=== PATIENT | male | born 1960 | race Caucasian/White ===

== ENCOUNTER 2016-11-01 13:31 | Emergency (ER) | payer MEDICAID ==
[~2016-11-01] VITALS: Ht 172.7 cm; Wt 110.0 kg
[~2016-11-01 13:31] MED LIST: AMLO5TAB4 PO; CALC300T5 PO; ERTA1VIA IV; FURO-92 PO; HYDR4TAB16 PO; LISI40TA PO; LORA2TAB99 PO; LUBI24CA5 PO; MORP60TA34 PO; Metronidazole PO; POLY17PO5 NG; POTA10TA PO; POTA20TA37 PO; RIVA20TA PO
[2016-11-01 13:33] VITALS: BP 165/98
[2016-11-01] MEDS ORDERED: SODIUM CHLORIDE 0.9% 1,000 ML IV ONE (13:58)
[2016-11-01] MEDS ORDERED: HYDROmorphone 1 MG/ML, 1ML IVPush PRN (14:00)
[2016-11-01] MEDS ORDERED: SODIUM CHLORIDE 0.9% 1,000ML IVBOLUS ONE (14:00)
[2016-11-01] MEDS ORDERED: ONDANSETRON 2MG/ML, 2ML IVPush ONE (14:00)
[2016-11-01] MEDS ORDERED: SODIUM CHLORIDE FLUSH 10ML SYR IVF ONE (14:00)
[2016-11-01 14:55] LABS: HEMOGLOBIN 14.5 g/dL (13.7-18.0)
[2016-11-01 15:06] LABS: BLOOD UREA NITROGEN 15 mg/dL (7-18)
[2016-11-01 15:10] LABS: ASPARTATE AMINO TRANSFERASE 61 U/L (15-37)
[2016-11-01] MEDS ORDERED: HYDROmorphone 1 MG/ML, 1ML ONE (16:28)
[2016-11-01] MEDS ORDERED: ONDANSETRON ODT 4 MG ONE (16:28)
[2016-11-01] MEDS ORDERED: ONDANSETRON ODT 4 MG PO ONE (16:30)
[2016-11-01] MEDS ORDERED: HYDROmorphone 1 MG/ML, 1ML IM ONE (16:30)
== END 2016-11-01 16:45 | disposition other institution (70) ==
LOC: ED 15:01
DX: R19.7 Diarrhea, unspecified (principal); R10.84 Generalized abdominal pain; E11.9 Type 2 diabetes mellitus without complications; G43.909 Migraine, unspecified, not intractable, without status migrainosus; I11.0 Hypertensive heart disease with heart failure; I50.40 Unspecified combined systolic (congestive) and diastolic (congestive) heart failure; N19 Unspecified kidney failure
CPT/HCPCS: 36415; 74020; 80053; 83690; 85025; 96372; 99285; J1170; Q0162

== ENCOUNTER 2016-11-07 12:52 | Emergency (ER) | payer MEDICAID ==
[~2016-11-07] VITALS: Ht 172.7 cm; Wt 110.9 kg
[2016-11-07 12:54] VITALS: BP 158/91
== END 2016-11-07 13:56 | disposition left against medical advice (07) ==
LOC: ED 13:50
DX: R07.89 Other chest pain (principal); F11.20 Opioid dependence, uncomplicated; I11.0 Hypertensive heart disease with heart failure; I50.9 Heart failure, unspecified; E11.9 Type 2 diabetes mellitus without complications; Z88.6 Allergy status to analgesic agent; Z88.8 Allergy status to other drugs, medicaments and biological substances
CPT/HCPCS: 93005; 99283

== ENCOUNTER 2016-12-06 15:25 | Inpatient (IN) | payer MEDICAID ==
[~2016-12-06] VITALS: Ht 172.7 cm; Wt 93.0 kg
[~2016-12-06 15:25] MED LIST changes: +CHOL500050 PO; +ERGO500017 PO; +METO-93 PO; +MULT-412 PO; +MULT-82 PO
[2016-12-06] MEDS ORDERED: MORP60TA34 PO (15:44)
[2016-12-06] MEDS ORDERED: LISI40TA PO (15:44)
[2016-12-06] MEDS ORDERED: DILT240C77 PO (15:44)
[2016-12-06] MEDS ORDERED: SODIUM CHLORIDE FLUSH 10ML SYR IVF ONE (16:30)
[2016-12-06] MEDS ORDERED: SODIUM CHLORIDE 0.9% 1,000ML IVBOLUS ONE (16:30)
[2016-12-06] MEDS ORDERED: ONDANSETRON 2MG/ML, 2ML IVPush ONE (16:30)
[2016-12-06 16:36] LABS: ASPARTATE AMINO TRANSFERASE 99 U/L (15-37); BLOOD UREA NITROGEN 20 mg/dL (7-18)
[2016-12-06] MEDS ORDERED: MORPHINE SULFATE 4 MG/ML, 1ML ONE ×2 (16:59→18:04)
[2016-12-06] MEDS ORDERED: ONDANSETRON 2MG/ML, 2ML ONE (16:59)
[2016-12-06] MEDS: MORPHINE SULFATE 4 MG/ML, 1ML IVPush PRN ×2 (17:03→18:07)
[2016-12-06] MEDS ORDERED: SODIUM CHLORIDE 0.9%, 500ML IVBOLUS ONE (17:30)
[2016-12-06] MEDS ORDERED: OMNIPAQUE 350 MG/ML, 100ML BOTTLE ONE ×2 (18:01→19:07)
[2016-12-06] MEDS ORDERED: BISACODYL 10 MG SUPP PR PRN (20:00)
[2016-12-06] MEDS ORDERED: ONDANSETRON 2MG/ML, 2ML IVP PRN (20:00)
[2016-12-06] MEDS ORDERED: HYDROmorphone 2MG TABLET PO PRN (20:00)
[2016-12-06] MEDS ORDERED: DOCUSATE 100 MG CAPSULE PO PRN (20:00)
[2016-12-06] MEDS ORDERED: POLYETHYLENE GLYCOL 17 GM PACKET PO PRN (20:00)
[2016-12-06] MEDS ORDERED: LABETALOL 5MG/ML, 20ML IV PRN (20:00)
[2016-12-06] MEDS ORDERED: ERGOCALCIFEROL 50,000 UNIT CAPSULE PO SCH (20:00)
[2016-12-06 20:13] VITALS: BP 140/95
[2016-12-06 20:34] LABS: DAU SCREEN DISCLAIMER
[2016-12-06] MEDS: morphine SULFATE 60 MG TABLET.ER PO SCH (21:00)
[2016-12-06] MEDS: NS + 20MEQ KCL 1,000 ML IV SCH (22:21)
[2016-12-06] MEDS: HEPARIN 5,000 UNITS/ML, 1ML SQ SCH (22:21)
[2016-12-06 22:24] VITALS: BP 111/66
[2016-12-06] MEDS: TRAZODONE 50MG TABLET PO PRN (23:59)
[2016-12-07 00:30] LABS: IS PT STATUS REG ER OR PRE ER? NO
[2016-12-07 01:54] VITALS: BP 97/62
[2016-12-07] MEDS: NS + 20MEQ KCL 1,000 ML IV SCH ×2 (04:20→09:13)
[2016-12-07] MEDS: HEPARIN 5,000 UNITS/ML, 1ML SQ SCH ×3 (05:32→22:15)
[2016-12-07 06:09] LABS: ASPARTATE AMINO TRANSFERASE 85 U/L (15-37); BLOOD UREA NITROGEN 23 mg/dL (7-18)
[2016-12-07 06:28] LABS: DIFF TOTAL CELLS COUNTED 100 CELL DIFF
[2016-12-07 06:30] LABS: VERIFY COUNTS? YES
[2016-12-07 06:31] LABS: ANISOCYTOSIS 1+; IS PT STATUS REG ER OR PRE ER? NO
[2016-12-07 08:02] VITALS: BP 129/81
[2016-12-07] MEDS: morphine SULFATE 60 MG TABLET.ER PO SCH ×2 (08:09→21:10)
[2016-12-07] MEDS: MULTIVITAMIN 1 TABLET PO SCH (08:09)
[2016-12-07] MEDS ORDERED: D5%-0.9% NACL 1,000 ML IV SCH ×2 (10:30)
[2016-12-07] MEDS ORDERED: MAGNESIUM SULFATE PMX 2GM/50ML 50 ML IV ONE (10:30)
[2016-12-07] MEDS ORDERED: CEFTRIAXONE PMX 1GM/50ML 50 ML IV SCH (11:00)
[2016-12-07] MEDS ORDERED: HYDROmorphone 2MG TABLET ONE (12:16)
[2016-12-07 13:34] VITALS: BP 122/63
[2016-12-07] MEDS: METOPROLOL SUCCINATE 50 MG TAB.ER.24H PO SCH (13:58)
[2016-12-07] MEDS: HYDROmorphone 2MG TABLET PO PRN ×2 (14:59→22:16)
[2016-12-07 20:00] VITALS: BP 138/89
[2016-12-07] MEDS: TRAZODONE 50MG TABLET PO PRN (23:12)
[2016-12-08 02:43] VITALS: BP 154/87
[2016-12-08] MEDS: HYDROmorphone 2MG TABLET PO PRN ×2 (04:08→10:27)
[2016-12-08 05:55] LABS: BLOOD UREA NITROGEN 18 mg/dL (7-18)
[2016-12-08] MEDS: METOPROLOL SUCCINATE 50 MG TAB.ER.24H PO SCH (06:46)
[2016-12-08 08:47] VITALS: BP 145/87
[2016-12-08] MEDS: morphine SULFATE 60 MG TABLET.ER PO SCH (08:49)
[2016-12-08] MEDS: MULTIVITAMIN 1 TABLET PO SCH (08:49)
[2016-12-08] MEDS: HEPARIN 5,000 UNITS/ML, 1ML SQ SCH (08:50)
[2016-12-08] MEDS ORDERED: AMLODIPINE 5 MG TABLET PO SCH (09:00)
[2016-12-08] MEDS ORDERED: HYDR2TAB40 PO (09:33)
[2016-12-08] MEDS ORDERED: AMLO5TAB2 PO (09:33)
[2016-12-08] MEDS ORDERED: METO-93 PO (09:33)
== END 2016-12-08 12:08 | disposition home or self-care (01) | DRG 439 ==
LOC: ED 18:07 → EDIP 18:08 → ED 18:18 → 5SO 20:09 → 4NOR 12-07 14:34
PROVIDERS: ADMIT Internal Medicine; ATTEND Internal Medicine
PROC: 0T9B70Z Drainage of Bladder with Drainage Device, Via Natural or Artificial Opening (ICD-10-PCS; principal; 2016-12-06)
DX: K85.90 Acute pancreatitis without necrosis or infection, unspecified (principal); F11.20 Opioid dependence, uncomplicated; K56.60 Unspecified intestinal obstruction; I42.1 Obstructive hypertrophic cardiomyopathy; I50.32 Chronic diastolic (congestive) heart failure; K56.7 Ileus, unspecified; N17.9 Acute kidney failure, unspecified; E78.5 Hyperlipidemia, unspecified; I73.9 Peripheral vascular disease, unspecified; F17.210 Nicotine dependence, cigarettes, uncomplicated; B19.20 Unspecified viral hepatitis C without hepatic coma; G89.29 Other chronic pain; I11.0 Hypertensive heart disease with heart failure; E55.9 Vitamin D deficiency, unspecified; E86.0 Dehydration; E87.6 Hypokalemia; E86.1 Hypovolemia; K76.0 Fatty (change of) liver, not elsewhere classified; Z86.711 Personal history of pulmonary embolism; Z86.718 Personal history of other venous thrombosis and embolism; Z86.14 Personal history of Methicillin resistant Staphylococcus aureus infection; Z88.8 Allergy status to other drugs, medicaments and biological substances; Z88.6 Allergy status to analgesic agent; Z90.49 Acquired absence of other specified parts of digestive tract; Z83.3 Family history of diabetes mellitus; Z86.19 Personal history of other infectious and parasitic diseases; Z71.6 Tobacco abuse counseling
CPT/HCPCS: 36415; 71010; 72192; 74175; 80048; 80053; 80307; 81001; 83690; 83735; 83880; 84439; 84443; 84484; 85025; 85610; 87040; 87324; 93005; 96361; 96374; 96375; J1644; J2405; J3480; Q9967; J3475; J7030; J7040

== ENCOUNTER 2017-01-23 | Inpatient (IN) | payer MEDICAID ==
[~2017-01-23] VITALS: Ht 172.7 cm; Wt 108.7 kg
[~2017-01-23] MED LIST changes: +AMLO5TAB2 PO; +DILT240C77 PO; +HYDR2TAB40 PO
[2017-01-23] MEDS ORDERED: SODIUM CHLORIDE 0.9% 1,000ML IVBOLUS ONE (01:30)
[2017-01-23] MEDS ORDERED: MORPHINE SULFATE 4 MG/ML, 1ML IVPush ONE (01:30)
[2017-01-23] MEDS ORDERED: ONDANSETRON 2MG/ML, 2ML IVPush ONE ×2 (01:30→05:00)
[2017-01-23 01:32] LABS: BLOOD UREA NITROGEN 19 mg/dL (7-18)
[2017-01-23 01:33] LABS: ASPARTATE AMINO TRANSFERASE 66 U/L (15-37)
[2017-01-23] MEDS ORDERED: ONDANSETRON 2MG/ML, 2ML ONE (01:55)
[2017-01-23] MEDS ORDERED: MORPHINE SULFATE 4 MG/ML, 1ML ONE (01:55)
[2017-01-23] MEDS ORDERED: POTASSIUM CHLORIDE 10 MEQ TABLET.ER PO SCH (04:30)
[2017-01-23] MEDS ORDERED: POTASSIUM CHLORIDE 20 MEQ in SODIUM CHLORIDE 0.9% 250 ML IV ONE (04:30)
[2017-01-23] MEDS ORDERED: POTASSIUM CHLORIDE 20 MEQ in D5%-0.45% NACL 1,000 ML IV ONE (04:54)
[2017-01-23] MEDS ORDERED: POTASSIUM CHLORIDE 20 MEQ TAB.ER.PRT PO ONE ×2 (05:00→07:00)
[2017-01-23] MEDS ORDERED: MORPHINE SULFATE 4 MG/ML, 1ML IVPush PRN (05:00)
[2017-01-23] MEDS ORDERED: SODIUM CHLORIDE FLUSH 10ML SYR IVF PRN (05:00)
[2017-01-23] MEDS ORDERED: POTASSIUM CHLORIDE 20 MEQ TAB.ER.PRT ONE (05:07)
[2017-01-23 05:41] VITALS: BP 149/90
[2017-01-23 07:20] VITALS: BP 162/85
[2017-01-23 07:23] VITALS: BP 155/87
[2017-01-23] MEDS ORDERED: ONDANSETRON ODT 4 MG PO PRN (08:30)
[2017-01-23] MEDS ORDERED: MAGNESIUM SULFATE PMX 2GM/50ML 50 ML IV ONE (08:30)
[2017-01-23] MEDS ORDERED: ONDANSETRON 2MG/ML, 2ML IVPush PRN (08:30)
[2017-01-23] MEDS ORDERED: LACTATED RINGERS 1,000 ML IV SCH (08:30)
[2017-01-23] MEDS: HYDROmorphone 2MG TABLET PO PRN ×5 (09:24→21:07)
[2017-01-23] MEDS: PANTOPROZOLE 40MG TABLET PO SCH (09:26)
[2017-01-23] MEDS: LISINOPRIL 20 MG TABLET PO SCH (09:27)
[2017-01-23] MEDS: DILTIAZEM 120 MG TABLET PO SCH (09:28)
[2017-01-23] MEDS: ONDANSETRON 2MG/ML, 2ML IVPush PRN ×2 (10:02→19:13)
[2017-01-23 10:48] LABS: DAU SCREEN DISCLAIMER
[2017-01-23] MEDS: NS + 20MEQ KCL 1,000 ML IV SCH ×2 (13:12→22:41)
[2017-01-23 14:48] VITALS: BP 128/74
[2017-01-23 19:57] VITALS: BP 142/79
[2017-01-23] MEDS ORDERED: ZOLPIDEM 5MG TABLET PO ONE (23:00)
[2017-01-24] MEDS: HYDROmorphone 2MG TABLET PO PRN ×3 (01:15→09:09)
[2017-01-24 02:44] VITALS: BP 139/80
[2017-01-24 06:38] LABS: BLOOD UREA NITROGEN 17 mg/dL (7-18)
[2017-01-24 08:01] VITALS: BP 162/94
[2017-01-24] MEDS: DILTIAZEM 120 MG TABLET PO SCH (09:09)
[2017-01-24] MEDS: PANTOPROZOLE 40MG TABLET PO SCH (09:09)
[2017-01-24] MEDS: NS + 20MEQ KCL 1,000 ML IV SCH (09:09)
[2017-01-24] MEDS: LISINOPRIL 20 MG TABLET PO SCH (09:10)
[2017-01-24] MEDS ORDERED: LORazepam 1MG TABLET PO PRN (11:00)
[2017-01-24] MEDS ORDERED: HYDR2TAB40 PO (14:19)
[2017-01-24] MEDS ORDERED: PANT40TA5 PO (14:45)
[2017-01-24 14:51] VITALS: BP 131/79
== END 2017-01-24 14:59 | disposition home or self-care (01) | DRG 439 ==
LOC: ED 00:48 → EDIP 04:38 → 4NOR 05:19
PROVIDERS: ADMIT Internal Medicine; ATTEND Internal Medicine
DX: K85.90 Acute pancreatitis without necrosis or infection, unspecified (principal); F11.20 Opioid dependence, uncomplicated; E87.2 Acidosis; K52.9 Noninfective gastroenteritis and colitis, unspecified; K86.1 Other chronic pancreatitis; B19.20 Unspecified viral hepatitis C without hepatic coma; E11.9 Type 2 diabetes mellitus without complications; I73.9 Peripheral vascular disease, unspecified; E87.6 Hypokalemia; E78.5 Hyperlipidemia, unspecified; E86.0 Dehydration; F17.210 Nicotine dependence, cigarettes, uncomplicated; G89.29 Other chronic pain; Z86.14 Personal history of Methicillin resistant Staphylococcus aureus infection; Z83.3 Family history of diabetes mellitus; Z80.9 Family history of malignant neoplasm, unspecified; I11.0 Hypertensive heart disease with heart failure; I50.9 Heart failure, unspecified; Z86.711 Personal history of pulmonary embolism; Z87.11 Personal history of peptic ulcer disease; R19.5 Other fecal abnormalities; Z90.49 Acquired absence of other specified parts of digestive tract; Z88.6 Allergy status to analgesic agent; Z88.8 Allergy status to other drugs, medicaments and biological substances
CPT/HCPCS: 36415; 74022; 80048; 80053; 80307; 81003; 83690; 83735; 84100; 85014; 85018; 85025; 87324; 93005; 96361; 96374; 96375; J2405; J3480; J3475; J7030

== ENCOUNTER 2017-01-29 10:44 | Emergency (ER) | payer MEDICAID ==
[~2017-01-29] VITALS: Ht 172.7 cm; Wt 107.0 kg
[~2017-01-29 10:44] MED LIST changes: +PANT40TA5 PO
[2017-01-29] MEDS ORDERED: BACITRACIN ZINC OINT 500U/GM, 0.9 GM ONE (11:17)
[2017-01-29] MEDS ORDERED: SODIUM CHLORIDE 0.9% 1,000 ML IV ONE (11:49)
[2017-01-29] MEDS ORDERED: FAMOTIDINE 20 MG/2 ML IVP ONE (12:00)
[2017-01-29] MEDS ORDERED: LORazepam 2 MG/ML, 1ML IVPush ONE (12:00)
[2017-01-29] MEDS ORDERED: ONDANSETRON 2MG/ML, 2ML IVPush ONE (12:00)
[2017-01-29] MEDS ORDERED: SODIUM CHLORIDE 0.9% 1,000ML IVBOLUS ONE (12:00)
[2017-01-29] MEDS ORDERED: MAALOX/HYOSCYAMINE/LIDOCAINE 45 ML BOTTLE PO ONE (12:00)
[2017-01-29] MEDS ORDERED: ONDANSETRON 2MG/ML, 2ML ONE (12:14)
[2017-01-29] MEDS ORDERED: FAMOTIDINE 20 MG/2 ML ONE (12:14)
[2017-01-29] MEDS ORDERED: MAALOX/HYOSCYAMINE/LIDOCAINE 45 ML BOTTLE ONE (12:14)
[2017-01-29] MEDS ORDERED: MORPHINE SULFATE 4 MG/ML, 1ML ONE ×2 (12:14→14:08)
[2017-01-29] MEDS ORDERED: LORazepam 2 MG/ML, 1ML ONE (12:15)
[2017-01-29] MEDS: MORPHINE SULFATE 4 MG/ML, 1ML IVPush PRN ×2 (12:58→14:11)
[2017-01-29 13:04] LABS: ASPARTATE AMINO TRANSFERASE 56 U/L (15-37); BLOOD UREA NITROGEN 14 mg/dL (7-18)
[2017-01-29 13:16] LABS: IS PT STATUS REG ER OR PRE ER? YES
[2017-01-29] MEDS ORDERED: OMNIPAQUE 350 MG/ML, 100ML BOTTLE ONE (13:51)
[2017-01-29] MEDS ORDERED: LORazepam 1MG TABLET ONE (14:29)
[2017-01-29] MEDS ORDERED: LORazepam 1MG TABLET PO ONE (14:30)
[2017-01-29 14:50] VITALS: BP 145/87
== END 2017-01-29 14:54 | disposition home or self-care (01) ==
LOC: ED 13:13
DX: K52.9 Noninfective gastroenteritis and colitis, unspecified (principal); E86.0 Dehydration; E78.5 Hyperlipidemia, unspecified; E11.40 Type 2 diabetes mellitus with diabetic neuropathy, unspecified; G43.909 Migraine, unspecified, not intractable, without status migrainosus; I50.9 Heart failure, unspecified; E11.22 Type 2 diabetes mellitus with diabetic chronic kidney disease; N18.9 Chronic kidney disease, unspecified; I12.9 Hypertensive chronic kidney disease with stage 1 through stage 4 chronic kidney disease, or unspecified chronic kidney disease; F41.9 Anxiety disorder, unspecified
CPT/HCPCS: 36415; 71010; 74177; 80053; 81003; 83605; 83690; 83880; 84484; 85025; 85610; 87040; 87324; 89055; 93005; 96361; 96374; 96375; 96376; 99285; J2060; J2405; J7030; Q9967; S0028

== ENCOUNTER 2017-02-06 09:53 | Emergency (ER) | payer MEDICAID ==
[~2017-02-06] VITALS: Ht 172.7 cm; Wt 107.0 kg
[~2017-02-06 09:53] MED LIST changes: -HYDR4TAB16 PO; +HYDR4TAB48 PO
[2017-02-06] MEDS ORDERED: FAMOTIDINE 20 MG/2 ML IVP ONE (10:30)
[2017-02-06] MEDS ORDERED: SODIUM CHLORIDE 0.9% 1,000ML IVBOLUS ONE ×2 (10:30→12:30)
[2017-02-06] MEDS ORDERED: HYDROmorphone 1 MG/ML, 1ML IVPush PRN (10:30)
[2017-02-06] MEDS ORDERED: SODIUM CHLORIDE FLUSH 10ML SYR IVF ONE (10:30)
[2017-02-06] MEDS ORDERED: ONDANSETRON 2MG/ML, 2ML IVPush ONE (10:30)
[2017-02-06] MEDS ORDERED: ONDANSETRON 2MG/ML, 2ML ONE (11:32)
[2017-02-06] MEDS ORDERED: HYDROmorphone 1 MG/ML, 1ML ONE ×2 (11:32→12:51)
[2017-02-06] MEDS ORDERED: FAMOTIDINE 20 MG/2 ML ONE (11:33)
[2017-02-06 11:37] LABS: IS PT STATUS REG ER OR PRE ER? YES
[2017-02-06 11:47] LABS: ASPARTATE AMINO TRANSFERASE 67 U/L (15-37); BLOOD UREA NITROGEN 17 mg/dL (7-18)
[2017-02-06] MEDS ORDERED: HYDROmorphone 1 MG/ML, 1ML IVPush ONE (12:30)
[2017-02-06 13:34] VITALS: BP 129/79
== END 2017-02-06 13:51 | disposition home or self-care (01) ==
LOC: ED 11:59
DX: R10.11 Right upper quadrant pain (principal); R10.13 Epigastric pain; R11.2 Nausea with vomiting, unspecified; R19.7 Diarrhea, unspecified
CPT/HCPCS: 36415; 80053; 81001; 83690; 84484; 85025; 93005; 96361; 96374; 96375; 96376; 99285; J1170; J2405; J7030; S0028

== ENCOUNTER 2017-02-24 13:17 | Inpatient (IN) | payer MEDICAID ==
[~2017-02-24] VITALS: Ht 172.7 cm; Wt 107.5 kg
[2017-02-24 14:12] LABS: ASPARTATE AMINO TRANSFERASE 72 U/L (15-37); BLOOD UREA NITROGEN 11 mg/dL (7-18)
[2017-02-24] MEDS ORDERED: LISI40TA PO (14:14)
[2017-02-24 14:17] LABS: IS PT STATUS REG ER OR PRE ER? YES
[2017-02-24] MEDS ORDERED: HYDROmorphone 1 MG/ML, 1ML ONE (14:24)
[2017-02-24] MEDS ORDERED: ONDANSETRON ODT 4 MG ONE (14:25)
[2017-02-24] MEDS ORDERED: ONDANSETRON ODT 8 MG ONE (14:30)
[2017-02-24] MEDS ORDERED: ONDANSETRON ODT 8 MG PO ONE (14:30)
[2017-02-24] MEDS ORDERED: HYDROmorphone 1 MG/ML, 1ML IM ONE (14:30)
[2017-02-24] MEDS ORDERED: OXYcodone/APAP 10/325MG TABLET PO ONE (14:30)
[2017-02-24 15:03] LABS: DIFF TOTAL CELLS COUNTED 100 CELL DIFF
[2017-02-24 15:04] LABS: VERIFY COUNTS? YES
[2017-02-24 15:07] LABS: ANISOCYTOSIS 1+
[2017-02-24 15:09] LABS: POLYCHROMASIA 1+
[2017-02-24] MEDS ORDERED: HYDROmorphone 2MG TABLET PO ONE (16:30)
[2017-02-24] MEDS ORDERED: SODIUM CHLORIDE 0.9%, 500ML IVBOLUS ONE (16:30)
[2017-02-24 17:33] LABS: IS PT STATUS REG ER OR PRE ER? YES
[2017-02-24] MEDS ORDERED: LIDOCAINE 1%, 20ML ONE (20:18)
[2017-02-24] MEDS ORDERED: ENOXAPARIN 100 MG/ML SQ ONE (21:00)
[2017-02-24] MEDS ORDERED: BISACODYL 10 MG SUPP PR PRN (22:00)
[2017-02-24] MEDS ORDERED: morphine SULFATE 60 MG TABLET.ER PO SCH (22:00)
[2017-02-24] MEDS ORDERED: ONDANSETRON 2MG/ML, 2ML IVPush PRN (22:00)
[2017-02-24] MEDS ORDERED: HYDROmorphone 2MG TABLET PO PRN (22:00)
[2017-02-24] MEDS ORDERED: ERGOCALCIFEROL 50,000 UNIT CAPSULE PO SCH (22:00)
[2017-02-24] MEDS ORDERED: ACETAMINOPHEN 325 MG TABLET PO PRN (22:00)
[2017-02-24] MEDS ORDERED: POLYETHYLENE GLYCOL 17 GM PACKET PO PRN (22:00)
[2017-02-24 22:34] VITALS: BP 137/78
[2017-02-24] MEDS ORDERED: FURO40TA6 PO (22:39)
[2017-02-24] MEDS ORDERED: POTA10TA11 PO (22:39)
[2017-02-24] MEDS: SODIUM CHLORIDE FLUSH 10ML SYR IVF SCH (23:03)
[2017-02-24 23:24] LABS: IS PT STATUS REG ER OR PRE ER? NO
[2017-02-25] MEDS: HYDROmorphone 2MG TABLET PO PRN ×6 (01:07→22:23)
[2017-02-25 03:01] VITALS: BP 100/61
[2017-02-25 04:51] VITALS: BP 105/63
[2017-02-25 06:05] LABS: ASPARTATE AMINO TRANSFERASE 56 U/L (15-37); BLOOD UREA NITROGEN 18 mg/dL (7-18)
[2017-02-25 06:18] LABS: DIFF TOTAL CELLS COUNTED 100 CELL DIFF
[2017-02-25 06:19] LABS: VERIFY COUNTS? YES
[2017-02-25 06:20] LABS: POIKILOCYTOSIS 1+
[2017-02-25 06:57] VITALS: BP 114/74
[2017-02-25] MEDS: LISINOPRIL 20 MG TABLET PO SCH (08:09)
[2017-02-25] MEDS: SENNA/DOCUSATE TABLET PO SCH (08:10)
[2017-02-25] MEDS: MULTIVITAMIN 1 TABLET PO SCH (08:10)
[2017-02-25] MEDS: SODIUM CHLORIDE FLUSH 10ML SYR IVF SCH ×2 (08:10→20:51)
[2017-02-25] MEDS ORDERED: HYDROmorphone 2MG TABLET PO PRN (16:30)
[2017-02-25 16:45] VITALS: BP 136/85
[2017-02-25] MEDS ORDERED: OMNIPAQUE 350 MG/ML, 100ML BOTTLE ONE (17:51)
[2017-02-25] MEDS: ENOXAPARIN 40 MG/0.4 ML SQ SCH (18:32)
[2017-02-25 21:00] VITALS: BP 156/83
[2017-02-25] MEDS: ZOLPIDEM 5MG TABLET PO PRN (22:23)
[2017-02-26 02:37] VITALS: BP 154/85
[2017-02-26] MEDS: HYDROmorphone 2MG TABLET PO PRN ×6 (02:41→22:31)
[2017-02-26 05:22] LABS: ASPARTATE AMINO TRANSFERASE 53 U/L (15-37); BLOOD UREA NITROGEN 24 mg/dL (7-18)
[2017-02-26 08:00] VITALS: BP 146/84
[2017-02-26] MEDS: SENNA/DOCUSATE TABLET PO SCH (09:00)
[2017-02-26] MEDS: SODIUM CHLORIDE FLUSH 10ML SYR IVF SCH ×2 (09:19→20:37)
[2017-02-26] MEDS: LISINOPRIL 20 MG TABLET PO SCH (09:20)
[2017-02-26] MEDS: MULTIVITAMIN 1 TABLET PO SCH (09:21)
[2017-02-26 12:15] VITALS: BP 146/89
[2017-02-26] MEDS: ENOXAPARIN 40 MG/0.4 ML SQ SCH (16:51)
[2017-02-26 20:00] VITALS: BP 150/89
[2017-02-26] MEDS: ZOLPIDEM 5MG TABLET PO PRN (20:37)
[2017-02-27 01:03] VITALS: BP 144/69
[2017-02-27] MEDS: HYDROmorphone 2MG TABLET PO PRN ×5 (02:30→18:28)
[2017-02-27] MEDS ORDERED: REGADENOSON 0.4 MG/5 ML SYRINGE ONE (08:18)
[2017-02-27 08:50] VITALS: BP 153/93
[2017-02-27] MEDS: SODIUM CHLORIDE FLUSH 10ML SYR IVF SCH (08:53)
[2017-02-27] MEDS: LISINOPRIL 20 MG TABLET PO SCH (08:53)
[2017-02-27] MEDS: MULTIVITAMIN 1 TABLET PO SCH (08:53)
[2017-02-27] MEDS: SENNA/DOCUSATE TABLET PO SCH (08:55)
[2017-02-27] MEDS ORDERED: ZOLP-413 PO (16:05)
== END 2017-02-27 18:33 | disposition home or self-care (01) | DRG 313 ==
LOC: ED 14:39 → EDIP 22:00 → 5SO 22:33
PROVIDERS: ADMIT Internal Medicine; ATTEND Internal Medicine
PROC: 02HV33Z Insertion of Infusion Device into Superior Vena Cava, Percutaneous Approach (ICD-10-PCS; principal; 2017-02-25)
PROC: B5181ZA Fluoroscopy of Superior Vena Cava using Low Osmolar Contrast, Guidance (ICD-10-PCS; 2017-02-25)
PROC: B548ZZA Ultrasonography of Superior Vena Cava, Guidance (ICD-10-PCS; 2017-02-25)
DX: R07.89 Other chest pain (principal); I50.32 Chronic diastolic (congestive) heart failure; F11.20 Opioid dependence, uncomplicated; D68.69 Other thrombophilia; I73.9 Peripheral vascular disease, unspecified; G89.29 Other chronic pain; I11.0 Hypertensive heart disease with heart failure; D72.825 Bandemia; B19.20 Unspecified viral hepatitis C without hepatic coma; F17.200 Nicotine dependence, unspecified, uncomplicated; F41.9 Anxiety disorder, unspecified; E11.9 Type 2 diabetes mellitus without complications; I25.2 Old myocardial infarction; Z86.711 Personal history of pulmonary embolism; Z90.49 Acquired absence of other specified parts of digestive tract; Z88.6 Allergy status to analgesic agent; Z88.8 Allergy status to other drugs, medicaments and biological substances; Z81.1 Family history of alcohol abuse and dependence; Z80.49 Family history of malignant neoplasm of other genital organs; Z82.49 Family history of ischemic heart disease and other diseases of the circulatory system; Z86.14 Personal history of Methicillin resistant Staphylococcus aureus infection; Z71.6 Tobacco abuse counseling
CPT/HCPCS: 36415; 36569; 71010; 71275; 74176; 76937; 77001; 78452; 80053; 81001; 84484; 85025; 85379; 85610; 85730; 93005; 93017; 93306; 96360; 96361; 96372; J1170; J1650; J2405; J2785; Q0162; Q9967; A9502; C1751; C9898; J7040

== ENCOUNTER 2017-03-03 15:24 | Emergency (ER) | payer MEDICAID ==
[~2017-03-03] VITALS: Ht 172.7 cm; Wt 103.5 kg
[~2017-03-03 15:24] MED LIST changes: +FURO40TA6 PO; +POTA10TA11 PO; +ZOLP-413 PO
[2017-03-03 15:25] VITALS: BP 128/85
[2017-03-03] MEDS ORDERED: OXYcodone/APAP 10/325MG TABLET PO ONE (16:00)
[2017-03-03] MEDS ORDERED: ONDANSETRON ODT 4 MG PO ONE (16:00)
[2017-03-03] MEDS ORDERED: ONDANSETRON ODT 4 MG ONE (16:35)
[2017-03-03] MEDS ORDERED: OXYcodone/APAP 10/325MG TABLET ONE (16:35)
== END 2017-03-03 16:46 | disposition home or self-care (01) ==
LOC: ED 16:40
DX: Z76.0 Encounter for issue of repeat prescription (principal); G89.29 Other chronic pain; M54.5 Low back pain; I10 Essential (primary) hypertension; E78.5 Hyperlipidemia, unspecified
CPT/HCPCS: 99283; Q0162

== ENCOUNTER 2017-03-09 10:37 | Emergency (ER) | payer MEDICAID ==
[~2017-03-09] VITALS: Ht 172.7 cm; Wt 102.0 kg
[2017-03-09 10:43] VITALS: BP 166/90
[2017-03-09] MEDS ORDERED: ONDANSETRON 2MG/ML, 2ML IVPush ONE (11:00)
[2017-03-09] MEDS ORDERED: SODIUM CHLORIDE FLUSH 10ML SYR IVF ONE (11:00)
[2017-03-09] MEDS ORDERED: SODIUM CHLORIDE 0.9% 1,000ML IVBOLUS ONE (11:00)
[2017-03-09] MEDS ORDERED: ONDANSETRON 2MG/ML, 2ML ONE (11:15)
[2017-03-09] MEDS ORDERED: HYDROmorphone 1 MG/ML, 1ML ONE ×2 (11:15→12:28)
[2017-03-09] MEDS: HYDROmorphone 1 MG/ML, 1ML IVPush PRN ×2 (11:19→12:36)
[2017-03-09 11:27] LABS: ASPARTATE AMINO TRANSFERASE 49 U/L (15-37); BLOOD UREA NITROGEN 15 mg/dL (7-18)
[2017-03-09] MEDS ORDERED: OMNIPAQUE 350 MG/ML, 100ML BOTTLE ONE (12:53)
== END 2017-03-09 13:55 | disposition home or self-care (01) ==
LOC: ED 12:17
DX: R10.31 Right lower quadrant pain (principal); R10.32 Left lower quadrant pain; R10.11 Right upper quadrant pain; E78.5 Hyperlipidemia, unspecified; I13.0 Hypertensive heart and chronic kidney disease with heart failure and stage 1 through stage 4 chronic kidney disease, or unspecified chronic kidney disease; E11.22 Type 2 diabetes mellitus with diabetic chronic kidney disease; N18.9 Chronic kidney disease, unspecified; Z90.49 Acquired absence of other specified parts of digestive tract
CPT/HCPCS: 36415; 74177; 80053; 81003; 83690; 85025; J1170; J2405; J7030; Q9967; 96374; 96375; 96376

== ENCOUNTER 2017-03-26 15:12 | Emergency (ER) | payer MEDICAID ==
[~2017-03-26] VITALS: Ht 172.7 cm; Wt 110.3 kg
[2017-03-26 16:41] VITALS: BP 174/98
[2017-03-26] MEDS ORDERED: HYDROmorphone 2MG TABLET PO PRN (17:00)
[2017-03-26 17:10] LABS: HEMATOCRIT 38.8 % (39.2-51.8); HEMOGLOBIN 12.3 g/dL (13.7-18.0); WHITE BLOOD COUNT 7.8 x10^3/uL (3.4-10)
[2017-03-26 17:18] LABS: BLOOD UREA NITROGEN 15 mg/dL (7-18); C-REACTIVE PROTEIN, QUANT 0.74 mg/dL (0.02-0.49)
== END 2017-03-26 19:17 | disposition home or self-care (01) ==
LOC: ED 17:37
DX: M54.5 Low back pain (principal); G89.29 Other chronic pain; E11.9 Type 2 diabetes mellitus without complications; E78.5 Hyperlipidemia, unspecified; I11.0 Hypertensive heart disease with heart failure; I50.9 Heart failure, unspecified; F17.200 Nicotine dependence, unspecified, uncomplicated; Z86.711 Personal history of pulmonary embolism; Z88.6 Allergy status to analgesic agent; Z88.5 Allergy status to narcotic agent; Z88.8 Allergy status to other drugs, medicaments and biological substances
CPT/HCPCS: 36415; 80048; 81003; 85025; 85651; 86140; 99284

== ENCOUNTER 2017-04-17 13:00 | Inpatient (IN) | payer MEDICAID ==
[~2017-04-17] VITALS: Ht 172.7 cm; Wt 106.8 kg
[~2017-04-17 13:00] MED LIST changes: -LUBI24CA5 PO; +LUBI24CA7 PO; +MULT-224 PO; -MULT-82 PO
[2017-04-17] MEDS ORDERED: SODIUM CHLORIDE 0.9% 1,000 ML IV ONE (13:27)
[2017-04-17] MEDS ORDERED: ONDANSETRON 2MG/ML, 2ML IVPush ONE (13:30)
[2017-04-17] MEDS ORDERED: MAALOX/HYOSCYAMINE/LIDOCAINE 45 ML BTL PO ONE (13:30)
[2017-04-17] MEDS ORDERED: FAMOTIDINE 20 MG/2 ML IVP ONE (13:30)
[2017-04-17] MEDS ORDERED: ONDANSETRON 2MG/ML, 2ML ONE (13:44)
[2017-04-17] MEDS ORDERED: MORPHINE SULFATE 4 MG/ML, 1ML ONE ×2 (13:44→14:36)
[2017-04-17] MEDS ORDERED: MAALOX/HYOSCYAMINE/LIDOCAINE 45 ML BTL ONE (13:44)
[2017-04-17] MEDS ORDERED: FAMOTIDINE 20 MG/2 ML ONE (13:44)
[2017-04-17 13:49] LABS: HEMATOCRIT 44.8 % (39.2-51.8); WHITE BLOOD COUNT 17.5 x10^3/uL (3.4-10)
[2017-04-17] MEDS: MORPHINE SULFATE 4 MG/ML, 1ML IVPush PRN ×2 (14:00→14:38)
[2017-04-17 14:01] LABS: ASPARTATE AMINO TRANSFERASE 113 U/L (15-37); BLOOD UREA NITROGEN 15 mg/dL (7-18)
[2017-04-17] MEDS ORDERED: SODIUM CHLORIDE 0.9% 1,000ML IVBOLUS ONE (14:30)
[2017-04-17] MEDS ORDERED: NS + 40MEQ KCL 1,000 ML IV SCH (14:30)
[2017-04-17] MEDS ORDERED: OMNIPAQUE 350 MG/ML, 100ML BOTTLE ONE (14:37)
[2017-04-17 17:43] VITALS: BP 175/109
[2017-04-17] MEDS ORDERED: MORPHINE SULFATE 4 MG/ML, 1ML IVPush PRN (19:00)
[2017-04-17] MEDS ORDERED: MORP30CP12 PO (19:59)
[2017-04-17] MEDS ORDERED: DILT120T3 PO (19:59)
[2017-04-17] MEDS ORDERED: ENALAPRILAT 1.25 MG/ML, 2ML IVPush PRN (20:00)
[2017-04-17] MEDS ORDERED: LORazepam 2 MG/ML, 1ML IVPush PRN (20:00)
[2017-04-17] MEDS ORDERED: DOCU-144 PO (20:04)
[2017-04-17] MEDS ORDERED: HYDR4TAB48 PO (20:04)
[2017-04-17] MEDS ORDERED: POLY17PO5 PO (20:06)
[2017-04-17 20:12] VITALS: BP 152/83
[2017-04-17] MEDS: NS + 40MEQ KCL 1,000 ML IV ONE ×2 (21:00→23:11)
[2017-04-17] MEDS: HYDROmorphone 1 MG/ML, 1ML IV PRN ×2 (23:12→23:36)
[2017-04-17] MEDS: ENOXAPARIN 40 MG/0.4 ML SQ SCH (23:12)
[2017-04-18] MEDS: HYDROmorphone 1 MG/ML, 1ML IV PRN ×6 (00:09→11:56)
[2017-04-18 00:46] VITALS: BP 146/97
[2017-04-18 04:31] LABS: HEMATOCRIT 37.1 % (39.2-51.8); HEMOGLOBIN 12.4 g/dL (13.7-18.0); WHITE BLOOD COUNT 7.3 x10^3/uL (3.4-10)
[2017-04-18 04:47] LABS: ASPARTATE AMINO TRANSFERASE 78 U/L (15-37); BLOOD UREA NITROGEN 16 mg/dL (7-18)
[2017-04-18] MEDS: SODIUM CHLORIDE 0.9% 1,000 ML IV SCH ×3 (06:41→21:40)
[2017-04-18 07:35] VITALS: BP 135/79
[2017-04-18] MEDS: ONDANSETRON 2MG/ML, 2ML IVPush PRN (08:00)
[2017-04-18] MEDS ORDERED: MAGNESIUM SULFATE PMX 2GM/50ML 50 ML IV ONE (11:30)
[2017-04-18] MEDS ORDERED: POTASSIUM PHOSPHATE 22 MEQ in SODIUM CHLORIDE 0.9% 500 ML IV ONE (11:30)
[2017-04-18] MEDS ORDERED: ZOLPIDEM 5MG TABLET PO PRN (13:00)
[2017-04-18] MEDS: POTASSIUM CHLORIDE 10 MEQ TABLET.ER PO SCH (14:38)
[2017-04-18] MEDS: DILTIAZEM 240 MG CAP.ER.24H PO SCH (14:38)
[2017-04-18 14:39] VITALS: BP 183/101
[2017-04-18] MEDS: LISINOPRIL 20 MG TABLET PO SCH (14:39)
[2017-04-18] MEDS: FUROSEMIDE 40 MG TABLET PO SCH (14:39)
[2017-04-18] MEDS ORDERED: HYDROmorphone 2MG TABLET ONE (15:19)
[2017-04-18] MEDS: HYDROmorphone 4MG TABLET PO PRN ×2 (15:21→20:00)
[2017-04-18 19:38] VITALS: BP 133/79
[2017-04-18] MEDS: ENOXAPARIN 40 MG/0.4 ML SQ SCH (20:35)
[2017-04-19] MEDS ORDERED: HYDROmorphone 2MG TABLET ONE ×3 (00:24→17:24)
[2017-04-19] MEDS: HYDROmorphone 4MG TABLET PO PRN ×3 (00:27→17:26)
[2017-04-19 01:27] VITALS: BP 134/83
[2017-04-19] MEDS: SODIUM CHLORIDE 0.9% 1,000 ML IV SCH ×3 (01:34→11:49)
[2017-04-19 04:37] LABS: ASPARTATE AMINO TRANSFERASE 101 U/L (15-37); BLOOD UREA NITROGEN 9 mg/dL (7-18)
[2017-04-19 07:27] VITALS: BP 158/100
[2017-04-19] MEDS: DILTIAZEM 240 MG CAP.ER.24H PO SCH (07:33)
[2017-04-19] MEDS: FUROSEMIDE 40 MG TABLET PO SCH ×2 (07:34→08:49)
[2017-04-19] MEDS: LISINOPRIL 20 MG TABLET PO SCH (07:34)
[2017-04-19] MEDS: POTASSIUM CHLORIDE 10 MEQ TABLET.ER PO SCH (07:34)
[2017-04-19 08:48] VITALS: BP 145/74
[2017-04-19] MEDS: ONDANSETRON 2MG/ML, 2ML IVPush PRN (09:57)
[2017-04-19] MEDS: HYDROmorphone 1 MG/ML, 1ML IV PRN (10:01)
[2017-04-19 16:30] VITALS: BP 154/86
== END 2017-04-19 18:00 | disposition home or self-care (01) | DRG 389 ==
LOC: ED 16:13 → EDIP 16:14 → 3NW 17:36
PROVIDERS: ADMIT Internal Medicine; ATTEND Internal Medicine
DX: K56.7 Ileus, unspecified (principal); E44.0 Moderate protein-calorie malnutrition; E87.2 Acidosis; I42.9 Cardiomyopathy, unspecified; I11.0 Hypertensive heart disease with heart failure; F11.20 Opioid dependence, uncomplicated; I50.32 Chronic diastolic (congestive) heart failure; E87.1 Hypo-osmolality and hyponatremia; E87.8 Other disorders of electrolyte and fluid balance, not elsewhere classified; E83.42 Hypomagnesemia; D64.9 Anemia, unspecified; E83.39 Other disorders of phosphorus metabolism; E78.5 Hyperlipidemia, unspecified; B18.2 Chronic viral hepatitis C; M54.9 Dorsalgia, unspecified; R74.0 Nonspecific elevation of levels of transaminase and lactic acid dehydrogenase [LDH]; D72.829 Elevated white blood cell count, unspecified; E86.0 Dehydration; E87.6 Hypokalemia; F17.210 Nicotine dependence, cigarettes, uncomplicated; E11.51 Type 2 diabetes mellitus with diabetic peripheral angiopathy without gangrene; G89.29 Other chronic pain; I16.0 Hypertensive urgency; I25.2 Old myocardial infarction; Z81.1 Family history of alcohol abuse and dependence; Z83.3 Family history of diabetes mellitus; Z86.14 Personal history of Methicillin resistant Staphylococcus aureus infection; Z86.711 Personal history of pulmonary embolism; Z91.14 Patient's other noncompliance with medication regimen; Z68.35 Body mass index [BMI] 35.0-35.9, adult; Z88.6 Allergy status to analgesic agent; Z88.5 Allergy status to narcotic agent; Z88.8 Allergy status to other drugs, medicaments and biological substances
CPT/HCPCS: 36415; 74000; 74177; 74245; 80053; 81003; 83605; 83690; 83735; 84100; 84145; 85025; 85610; 87040; 93970; 96361; 96374; 96375; 96376; J1170; J1650; J2405; Q9967; J2060; J3475; J3480; J7030; J7040; S0028

== ENCOUNTER 2017-05-24 10:48 | Inpatient (IN) | payer MEDICAID ==
[~2017-05-24] VITALS: Ht 172.7 cm; Wt 109.0 kg
[~2017-05-24 10:48] MED LIST changes: +DILT120T3 PO; +DOCU-144 PO; +MORP30CP12 PO; +POLY17PO5 PO
[2017-05-24] MEDS ORDERED: SODIUM CHLORIDE 0.9% 1,000ML IVBOLUS ONE (11:30)
[2017-05-24] MEDS ORDERED: ONDANSETRON 2MG/ML, 2ML IVPush ONE (11:30)
[2017-05-24] MEDS ORDERED: ONDANSETRON 2MG/ML, 2ML ONE (11:44)
[2017-05-24 11:49] LABS: HEMATOCRIT 37.7 % (39.2-51.8); HEMOGLOBIN 12.4 g/dL (13.7-18.0); WHITE BLOOD COUNT 3.8 x10^3/uL (3.4-10)
[2017-05-24 11:51] LABS: ASPARTATE AMINO TRANSFERASE 80 U/L (15-37); BLOOD UREA NITROGEN 7 mg/dL (7-18)
[2017-05-24 12:29] LABS: ANISOCYTOSIS 1+; OVALOCYTES 1+; POLYCHROMASIA 1+
[2017-05-24] MEDS ORDERED: SODIUM CHLORIDE FLUSH 10ML SYR IVF ONE (12:30)
[2017-05-24] MEDS ORDERED: OMNIPAQUE 350 MG/ML, 100ML BOTTLE ONE (12:35)
[2017-05-24] MEDS ORDERED: HEPARIN 5,000 UNITS/ML, 1ML ONE (13:10)
[2017-05-24] MEDS ORDERED: HEPARIN 25,000 UNITS/500ML PMX 500 ML ONE (13:10)
[2017-05-24] MEDS ORDERED: MORPHINE SULFATE 4 MG/ML, 1ML IVPush ONE (13:30)
[2017-05-24] MEDS ORDERED: HEPARIN 25,000 UNITS/500ML PMX 500 ML IV PRN ×2 (13:30→15:30)
[2017-05-24] MEDS ORDERED: HEPARIN 5,000 UNITS/ML, 1ML IV ONE (13:30)
[2017-05-24] MEDS ORDERED: MORPHINE SULFATE 4 MG/ML, 1ML ONE (13:50)
[2017-05-24] MEDS ORDERED: ONDANSETRON ODT 4 MG PO PRN (15:30)
[2017-05-24] MEDS ORDERED: POLYETHYLENE GLYCOL 17 GM PACKET PO PRN (15:30)
[2017-05-24] MEDS ORDERED: ONDANSETRON 2MG/ML, 2ML IVPush PRN (15:30)
[2017-05-24] MEDS ORDERED: HYDROmorphone 2 MG/ML, 1ML IVPush PRN (15:30)
[2017-05-24] MEDS ORDERED: hydrALAzine 20 MG/ML, 1ML IVPush PRN (15:30)
[2017-05-24] MEDS ORDERED: BISACODYL 10 MG SUPP PR PRN (15:30)
[2017-05-24] MEDS ORDERED: DOCUSATE 100 MG CAPSULE PO PRN ×2 (15:30)
[2017-05-24] MEDS: NICOTINE 14MG/24 HR PATCH.TD24 TD SCH (15:30)
[2017-05-24] MEDS ORDERED: TEMAZEPAM 15 MG CAPSULE PO PRN (15:30)
[2017-05-24] MEDS ORDERED: HYDROmorphone 2MG TABLET ONE ×2 (15:47→21:07)
[2017-05-24] MEDS: HYDROmorphone 4MG TABLET PO PRN ×2 (15:51→21:11)
[2017-05-24] MEDS: HEPARIN 25,000 UNITS/500ML PMX 500 ML IV PRN (17:05)
[2017-05-24 17:09] VITALS: BP 161/95
[2017-05-24] MEDS ORDERED: WARFARIN 7.5 MG TABLET PO-COUM ONE (18:00)
[2017-05-24] MEDS ORDERED: WARFARIN 5 MG TABLET PO-COUM ONE (18:00)
[2017-05-24 19:20] VITALS: BP 145/86
[2017-05-24] MEDS: HEPARIN 5,000 UNITS/ML, 1ML IV PRN (21:12)
[2017-05-24] MEDS: ZOLPIDEM 5MG TABLET PO PRN (21:55)
[2017-05-25 00:22] VITALS: BP 126/79
[2017-05-25] MEDS ORDERED: HYDROmorphone 2MG TABLET ONE ×5 (02:43→18:02)
[2017-05-25] MEDS: HYDROmorphone 4MG TABLET PO PRN ×4 (02:46→18:04)
[2017-05-25 03:38] LABS: HEMATOCRIT 38.6 % (39.2-51.8); HEMOGLOBIN 12.5 g/dL (13.7-18.0); WHITE BLOOD COUNT 5.2 x10^3/uL (3.4-10)
[2017-05-25 03:47] LABS: BLOOD UREA NITROGEN 11 mg/dL (7-18)
[2017-05-25 04:00] VITALS: BP 134/84
[2017-05-25] MEDS: HEPARIN 5,000 UNITS/ML, 1ML IV PRN ×3 (04:27→17:54)
[2017-05-25 07:19] VITALS: BP 120/75
[2017-05-25] MEDS ORDERED: PANTOPRAZOLE 40 MG IV IVPush SCH (07:30)
[2017-05-25] MEDS: DILTIAZEM 120 MG TABLET PO SCH (08:02)
[2017-05-25] MEDS: FUROSEMIDE 40 MG TABLET PO SCH (08:03)
[2017-05-25] MEDS: POTASSIUM CHLORIDE 10 MEQ TABLET.ER PO SCH (08:03)
[2017-05-25] MEDS: SENNA/DOCUSATE TABLET PO SCH (08:03)
[2017-05-25] MEDS: LISINOPRIL 20 MG TABLET PO SCH (08:03)
[2017-05-25] MEDS ORDERED: WARFARIN MODERAT DOSE PROTOCOL XX SCH (12:00)
[2017-05-25] MEDS: HEPARIN 25,000 UNITS/500ML PMX 500 ML IV PRN ×2 (12:23→14:03)
[2017-05-25] MEDS: PANTOPROZOLE 40MG TABLET PO SCH (13:14)
[2017-05-25 15:25] VITALS: BP 117/62
[2017-05-25] MEDS: NICOTINE 14MG/24 HR PATCH.TD24 TD SCH (15:30)
[2017-05-25 19:30] VITALS: BP 108/63
[2017-05-25] MEDS: ZOLPIDEM 5MG TABLET PO PRN (20:30)
[2017-05-26] MEDS: HEPARIN 5,000 UNITS/ML, 1ML IV PRN ×4 (00:05→22:21)
[2017-05-26] MEDS ORDERED: HYDROmorphone 2MG TABLET ONE ×2 (00:15→05:30)
[2017-05-26 00:19] VITALS: BP 130/74
[2017-05-26] MEDS: HYDROmorphone 4MG TABLET PO PRN ×2 (00:24→05:38)
[2017-05-26 06:25] LABS: HEMATOCRIT 32.3 % (39.2-51.8); HEMOGLOBIN 10.6 g/dL (13.7-18.0)
[2017-05-26 06:28] LABS: BLOOD UREA NITROGEN 16 mg/dL (7-18)
[2017-05-26 06:35] VITALS: BP 124/78
[2017-05-26] MEDS: PANTOPROZOLE 40MG TABLET PO SCH (07:27)
[2017-05-26] MEDS: POTASSIUM CHLORIDE 10 MEQ TABLET.ER PO SCH (08:56)
[2017-05-26] MEDS: SENNA/DOCUSATE TABLET PO SCH (08:56)
[2017-05-26] MEDS: FUROSEMIDE 40 MG TABLET PO SCH (08:56)
[2017-05-26] MEDS: LISINOPRIL 20 MG TABLET PO SCH (08:56)
[2017-05-26] MEDS: DILTIAZEM 120 MG TABLET PO SCH (08:57)
[2017-05-26] MEDS: POLYETHYLENE GLYCOL 17 GM PACKET PO SCH (08:57)
[2017-05-26] MEDS ORDERED: HEPARIN 25,000 UNITS/500ML PMX 500 ML IV PRN (10:00)
[2017-05-26] MEDS: HYDROmorphone 2MG TABLET PO PRN ×2 (10:11→14:36)
[2017-05-26 12:40] VITALS: BP 120/79
[2017-05-26] MEDS: NICOTINE 14MG/24 HR PATCH.TD24 TD SCH (15:30)
[2017-05-26] MEDS ORDERED: WARFARIN 7.5 MG TABLET PO-COUM ONE (18:00)
[2017-05-26 19:18] VITALS: BP 125/69
[2017-05-26] MEDS: ZOLPIDEM 5MG TABLET PO PRN (20:09)
[2017-05-26] MEDS: HEPARIN 25,000 UNITS/500ML PMX 500 ML IV PRN (22:20)
[2017-05-27] MEDS: HYDROmorphone 2MG TABLET PO PRN ×5 (00:17→17:28)
[2017-05-27 00:51] VITALS: BP 154/81
[2017-05-27 05:37] LABS: BLOOD UREA NITROGEN 14 mg/dL (7-18)
[2017-05-27 05:38] LABS: HEMATOCRIT 31.9 % (39.2-51.8); HEMOGLOBIN 10.6 g/dL (13.7-18.0); WHITE BLOOD COUNT 4.6 x10^3/uL (3.4-10)
[2017-05-27 06:53] VITALS: BP_SYST 139; BP_SYST 148; BP_DIAS 86; BP_DIAS 90
[2017-05-27] MEDS: LISINOPRIL 20 MG TABLET PO SCH (07:59)
[2017-05-27] MEDS: PANTOPROZOLE 40MG TABLET PO SCH (07:59)
[2017-05-27] MEDS: FUROSEMIDE 40 MG TABLET PO SCH (07:59)
[2017-05-27] MEDS: POTASSIUM CHLORIDE 10 MEQ TABLET.ER PO SCH (07:59)
[2017-05-27] MEDS: DILTIAZEM 120 MG TABLET PO SCH (08:00)
[2017-05-27] MEDS: SENNA/DOCUSATE TABLET PO SCH (08:01)
[2017-05-27] MEDS: HEPARIN 25,000 UNITS/500ML PMX 500 ML IV PRN (11:16)
[2017-05-27 11:53] VITALS: BP 103/66
[2017-05-27] MEDS: METOPROLOL SUCCINATE 25 MG TAB.ER.24H PO SCH (11:54)
[2017-05-27 13:07] LABS: PROTEIN S FREE 93 % (57-157); PROTEIN S TOTAL 76 % (60-150)
[2017-05-27 14:00] VITALS: BP 119/53
[2017-05-27] MEDS: NICOTINE 14MG/24 HR PATCH.TD24 TD SCH (15:30)
[2017-05-27] MEDS ORDERED: WARFARIN 10 MG TABLET PO-COUM ONE (18:00)
[2017-05-27 20:12] VITALS: BP 125/79
[2017-05-27] MEDS: OXYcodone IR 5MG TABLET PO PRN (20:27)
[2017-05-28] MEDS: HEPARIN 25,000 UNITS/500ML PMX 500 ML IV PRN ×2 (00:08→12:32)
[2017-05-28] MEDS: HYDROmorphone 2MG TABLET PO PRN ×4 (00:09→13:10)
[2017-05-28 01:43] VITALS: BP 127/68
[2017-05-28] MEDS: ZOLPIDEM 5MG TABLET PO PRN ×2 (02:17→19:46)
[2017-05-28 05:25] VITALS: BP 136/83
[2017-05-28] MEDS: METOPROLOL SUCCINATE 25 MG TAB.ER.24H PO SCH (05:26)
[2017-05-28 07:44] LABS: HEMATOCRIT 32.2 % (39.2-51.8); HEMOGLOBIN 10.7 g/dL (13.7-18.0); WHITE BLOOD COUNT 6.8 x10^3/uL (3.4-10)
[2017-05-28 07:45] LABS: BLOOD UREA NITROGEN 16 mg/dL (7-18)
[2017-05-28 07:48] VITALS: BP 127/75
[2017-05-28 07:53] LABS: ANTI-Xa-UNFRACTIONATED HEP 0.79 IU/mL (0.30-0.70)
[2017-05-28] MEDS: PANTOPROZOLE 40MG TABLET PO SCH (08:24)
[2017-05-28] MEDS: DILTIAZEM 120 MG TABLET PO SCH (08:24)
[2017-05-28] MEDS: FUROSEMIDE 40 MG TABLET PO SCH (08:25)
[2017-05-28] MEDS: POTASSIUM CHLORIDE 10 MEQ TABLET.ER PO SCH (08:25)
[2017-05-28] MEDS: LISINOPRIL 20 MG TABLET PO SCH (08:25)
[2017-05-28] MEDS: SENNA/DOCUSATE TABLET PO SCH (08:26)
[2017-05-28] MEDS: POLYETHYLENE GLYCOL 17 GM PACKET PO SCH (08:26)
[2017-05-28 14:32] VITALS: BP 98/57
[2017-05-28] MEDS: NICOTINE 14MG/24 HR PATCH.TD24 TD SCH (15:30)
[2017-05-28] MEDS ORDERED: WARFARIN 7.5 MG TABLET PO-COUM SCH (18:00)
[2017-05-28 19:45] VITALS: BP 129/66
[2017-05-28] MEDS: OXYcodone IR 5MG TABLET PO PRN (19:45)
[2017-05-29] MEDS: HYDROmorphone 2MG TABLET PO PRN ×4 (00:28→15:20)
[2017-05-29 02:10] VITALS: BP 94/57
[2017-05-29] MEDS: HEPARIN 25,000 UNITS/500ML PMX 500 ML IV PRN ×2 (03:08→18:07)
[2017-05-29 03:19] LABS: HEMATOCRIT 32.3 % (39.2-51.8); HEMOGLOBIN 10.6 g/dL (13.7-18.0); WHITE BLOOD COUNT 4.8 x10^3/uL (3.4-10)
[2017-05-29 03:20] LABS: BLOOD UREA NITROGEN 18 mg/dL (7-18)
[2017-05-29 04:30] VITALS: BP 114/65
[2017-05-29 05:18] VITALS: BP 104/52
[2017-05-29] MEDS: METOPROLOL SUCCINATE 25 MG TAB.ER.24H PO SCH (05:30)
[2017-05-29 08:08] VITALS: BP 123/75
[2017-05-29] MEDS: SENNA/DOCUSATE TABLET PO SCH (08:11)
[2017-05-29] MEDS: POTASSIUM CHLORIDE 10 MEQ TABLET.ER PO SCH (08:12)
[2017-05-29] MEDS: FUROSEMIDE 40 MG TABLET PO SCH (08:12)
[2017-05-29] MEDS: PANTOPROZOLE 40MG TABLET PO SCH (08:12)
[2017-05-29] MEDS: LISINOPRIL 20 MG TABLET PO SCH (08:12)
[2017-05-29] MEDS: DILTIAZEM 120 MG TABLET PO SCH (08:12)
[2017-05-29 10:25] LABS: ANTITHROMBIN III ACTIVITY 74 % (75-135)
[2017-05-29] MEDS: OXYcodone IR 5MG TABLET PO PRN ×2 (13:03→20:09)
[2017-05-29 15:58] VITALS: BP 121/68
[2017-05-29] MEDS: NICOTINE 14MG/24 HR PATCH.TD24 TD SCH (16:46)
[2017-05-29 17:07] LABS: FACTOR II DNA ANALYSIS Negative (.)
[2017-05-29] MEDS ORDERED: WARFARIN 5 MG TABLET PO-COUM ONE (18:00)
[2017-05-29 19:07] LABS: PROTEIN S FREE 88 % (57-157); PROTEIN S FUNCTIONAL 95 % (63-140); PROTEIN S TOTAL 70 % (60-150)
[2017-05-29 20:08] VITALS: BP 111/68
[2017-05-29] MEDS: ZOLPIDEM 5MG TABLET PO PRN (20:09)
[2017-05-30 00:48] VITALS: BP 123/60
[2017-05-30] MEDS: HYDROmorphone 2MG TABLET PO PRN ×3 (00:49→09:53)
[2017-05-30 02:29] VITALS: BP 130/76
[2017-05-30 05:14] VITALS: BP 108/55
[2017-05-30] MEDS: METOPROLOL SUCCINATE 25 MG TAB.ER.24H PO SCH (05:16)
[2017-05-30 05:51] VITALS: BP 123/81
[2017-05-30 06:17] LABS: BLOOD UREA NITROGEN 17 mg/dL (7-18)
[2017-05-30 06:18] LABS: ANTI-Xa-UNFRACTIONATED HEP 0.21 IU/mL (0.30-0.70)
[2017-05-30 06:44] LABS: HEMATOCRIT 33.4 % (39.2-51.8); WHITE BLOOD COUNT 4.8 x10^3/uL (3.4-10)
[2017-05-30] MEDS: HEPARIN 5,000 UNITS/ML, 1ML IV PRN (07:08)
[2017-05-30] MEDS: HEPARIN 25,000 UNITS/500ML PMX 500 ML IV PRN (07:10)
[2017-05-30 07:22] LABS: DIFF TOTAL CELLS COUNTED 100 CELL DIFF
[2017-05-30 07:24] LABS: VERIFY COUNTS? YES
[2017-05-30 07:25] LABS: ANISOCYTOSIS 1+; POLYCHROMASIA 1+
[2017-05-30] MEDS: PANTOPROZOLE 40MG TABLET PO SCH (07:39)
[2017-05-30 07:59] VITALS: BP 135/84
[2017-05-30] MEDS ORDERED: SENNA/DOCUSATE TABLET PO SCH (09:00)
[2017-05-30] MEDS: DILTIAZEM 120 MG TABLET PO SCH (09:19)
[2017-05-30] MEDS: FUROSEMIDE 40 MG TABLET PO SCH (09:19)
[2017-05-30] MEDS: LISINOPRIL 20 MG TABLET PO SCH (09:19)
[2017-05-30] MEDS: POTASSIUM CHLORIDE 10 MEQ TABLET.ER PO SCH (09:19)
[2017-05-30] MEDS ORDERED: WARF5TAB PO (09:26)
[2017-05-31] MEDS ORDERED: POLYETHYLENE GLYCOL 17 GM PACKET PO SCH (09:00)
== END 2017-05-30 12:21 | disposition home or self-care (01) | DRG 176 ==
LOC: ED 13:20 → EDIP 15:05 → 4WST 15:42
PROVIDERS: ADMIT Internal Medicine; ATTEND Internal Medicine
DX: I26.99 Other pulmonary embolism without acute cor pulmonale (principal); K56.600 Partial intestinal obstruction, unspecified as to cause; E11.51 Type 2 diabetes mellitus with diabetic peripheral angiopathy without gangrene; I42.1 Obstructive hypertrophic cardiomyopathy; F11.20 Opioid dependence, uncomplicated; I11.0 Hypertensive heart disease with heart failure; I50.32 Chronic diastolic (congestive) heart failure; B19.20 Unspecified viral hepatitis C without hepatic coma; F17.200 Nicotine dependence, unspecified, uncomplicated; G89.29 Other chronic pain; I08.0 Rheumatic disorders of both mitral and aortic valves; G43.909 Migraine, unspecified, not intractable, without status migrainosus; M54.9 Dorsalgia, unspecified; I34.0 Nonrheumatic mitral (valve) insufficiency; Z83.3 Family history of diabetes mellitus; Z86.14 Personal history of Methicillin resistant Staphylococcus aureus infection; Z91.19 Patient's noncompliance with other medical treatment and regimen; Z86.711 Personal history of pulmonary embolism
CPT/HCPCS: 36415; 74177; 80048; 80053; 81240; 81241; 83690; 85025; 85300; 85301; 85305; 85306; 85307; 85520; 85610; 86147; 87324; 93005; 93306; 93970; 96361; 96374; 96375; J1170; J1644; J2405; Q9967; J7030

== ENCOUNTER 2017-05-31 08:49 | Emergency (ER) | payer MEDICAID ==
[~2017-05-31] VITALS: Ht 172.7 cm; Wt 100.6 kg
[~2017-05-31 08:49] MED LIST changes: +WARF5TAB PO
[2017-05-31] MEDS ORDERED: ACETAMINOPHEN 500 MG TABLET PO ONE (09:30)
[2017-05-31] MEDS ORDERED: WARFARIN 5 MG TABLET PO-COUM ONE (09:30)
[2017-05-31] MEDS ORDERED: ACETAMINOPHEN 500 MG TABLET ONE (09:37)
[2017-05-31 10:18] LABS: HEMATOCRIT 39.1 % (39.2-51.8); HEMOGLOBIN 13.1 g/dL (13.7-18.0); WHITE BLOOD COUNT 5.9 x10^3/uL (3.4-10)
[2017-05-31 10:24] LABS: BLOOD UREA NITROGEN 15 mg/dL (7-18)
[2017-05-31 10:30] VITALS: BP 159/95
[2017-05-31 10:31] LABS: IS PT STATUS REG ER OR PRE ER? YES
== END 2017-05-31 11:10 | disposition home or self-care (01) ==
LOC: ED 09:17
DX: R07.89 Other chest pain (principal); E78.5 Hyperlipidemia, unspecified; I11.0 Hypertensive heart disease with heart failure; I50.9 Heart failure, unspecified; E11.21 Type 2 diabetes mellitus with diabetic nephropathy; F17.200 Nicotine dependence, unspecified, uncomplicated; Z86.718 Personal history of other venous thrombosis and embolism; Z86.711 Personal history of pulmonary embolism
CPT/HCPCS: 36415; 71010; 80048; 82040; 84484; 85025; 85610; 85730; 93005; 99285

== ENCOUNTER 2017-06-20 17:19 | Inpatient (IN) | payer MEDICAID ==
[~2017-06-20] VITALS: Ht 172.7 cm; Wt 102.9 kg
[2017-06-20] MEDS ORDERED: LORazepam 2 MG/ML, 1ML ONE ×2 (18:19→18:34)
[2017-06-20 18:26] LABS: HEMATOCRIT 43.4 % (39.2-51.8); HEMOGLOBIN 14.5 g/dL (13.7-18.0); WHITE BLOOD COUNT 6.8 x10^3/uL (3.4-10)
[2017-06-20] MEDS ORDERED: LORazepam 2 MG/ML, 1ML IVPush ONE ×2 (18:30→18:33)
[2017-06-20] MEDS ORDERED: HYDROmorphone 4MG TABLET PO PRN (21:30)
[2017-06-20] MEDS ORDERED: POLYETHYLENE GLYCOL 17 GM PACKET PO PRN (21:30)
[2017-06-20] MEDS ORDERED: ACETAMINOPHEN 325 MG TABLET PO PRN (21:30)
[2017-06-20] MEDS ORDERED: morphine SULFATE 15 MG TAB.IR PO PRN (21:30)
[2017-06-20] MEDS ORDERED: ONDANSETRON ODT 4 MG PO PRN (21:30)
[2017-06-20 21:50] VITALS: BP 135/87
[2017-06-20] MEDS ORDERED: WARFARIN 2 MG TABLET PO-COUM ONE (22:30)
[2017-06-20] MEDS: HYDROmorphone 2MG TABLET PO PRN (23:01)
[2017-06-20] MEDS: ZOLPIDEM 5MG TABLET PO PRN (23:48)
[2017-06-20 23:56] VITALS: BP 135/87
[2017-06-21 02:30] VITALS: BP 127/76
[2017-06-21] MEDS: HYDROmorphone 2MG TABLET PO PRN ×4 (05:11→21:25)
[2017-06-21 07:00] VITALS: BP 143/87
[2017-06-21] MEDS ORDERED: MAGNESIUM CITRATE 300ML ORAL SOL PO ONE (08:00)
[2017-06-21] MEDS ORDERED: WARFARIN 5 MG TABLET PO-COUM SCH (09:00)
[2017-06-21] MEDS: DILTIAZEM 240 MG CAP.ER.24H PO SCH (10:26)
[2017-06-21] MEDS: FUROSEMIDE 40 MG TABLET PO SCH (10:26)
[2017-06-21] MEDS: POTASSIUM CHLORIDE 20 MEQ TAB.ER.PRT PO SCH (10:26)
[2017-06-21] MEDS: LISINOPRIL 20 MG TABLET PO SCH (10:26)
[2017-06-21 14:14] VITALS: BP 134/82
[2017-06-21] MEDS ORDERED: WARFARIN 7.5 MG TABLET PO-COUM ONE (18:00)
[2017-06-21] MEDS: DOCUSATE 100 MG CAPSULE PO PRN (18:20)
[2017-06-21 20:00] VITALS: BP 131/77
[2017-06-21] MEDS: ZOLPIDEM 5MG TABLET PO PRN (21:25)
[2017-06-22 01:49] VITALS: BP 132/78
[2017-06-22] MEDS: HYDROmorphone 2MG TABLET PO PRN ×3 (03:05→17:24)
[2017-06-22] MEDS ORDERED: LORazepam 2 MG/ML, 1ML IVPush ONE (06:30)
[2017-06-22] MEDS ORDERED: DIPHENHYDRAMINE 50 MG/ML, 1ML IVPush ONE (06:30)
[2017-06-22] MEDS ORDERED: FENTANYL PF 100 MCG/2ML ONE (07:52)
[2017-06-22] MEDS ORDERED: MIDAZOLAM 1 MG/ML, 5ML ONE (07:52)
[2017-06-22] MEDS ORDERED: NALOXONE 1 MG/ML, 2ML ONE (07:53)
[2017-06-22] MEDS: DILTIAZEM 240 MG CAP.ER.24H PO SCH (10:30)
[2017-06-22] MEDS: POLYETHYLENE GLYCOL 17 GM PACKET PO SCH ×2 (10:31→10:35)
[2017-06-22] MEDS: FUROSEMIDE 40 MG TABLET PO SCH (10:32)
[2017-06-22] MEDS: DOCUSATE 100 MG CAPSULE PO PRN ×2 (10:32→21:25)
[2017-06-22] MEDS: LISINOPRIL 20 MG TABLET PO SCH (10:32)
[2017-06-22] MEDS: POTASSIUM CHLORIDE 20 MEQ TAB.ER.PRT PO SCH (10:32)
[2017-06-22 10:40] VITALS: BP 163/96
[2017-06-22 10:55] VITALS: BP 152/93
[2017-06-22 14:47] VITALS: BP 161/88
[2017-06-22] MEDS ORDERED: WARFARIN 10 MG TABLET PO-COUM ONE (18:00)
[2017-06-22 19:51] VITALS: BP 154/87
[2017-06-22] MEDS: ZOLPIDEM 5MG TABLET PO PRN (21:25)
[2017-06-23] MEDS: HYDROmorphone 2MG TABLET PO PRN ×3 (00:32→11:11)
[2017-06-23 02:00] VITALS: BP 108/56
[2017-06-23 07:54] VITALS: BP 141/79
[2017-06-23] MEDS: LISINOPRIL 20 MG TABLET PO SCH (09:01)
[2017-06-23] MEDS: FUROSEMIDE 40 MG TABLET PO SCH (09:01)
[2017-06-23] MEDS: POTASSIUM CHLORIDE 20 MEQ TAB.ER.PRT PO SCH (09:01)
[2017-06-23] MEDS: POLYETHYLENE GLYCOL 17 GM PACKET PO SCH (09:01)
[2017-06-23] MEDS: DOCUSATE 100 MG CAPSULE PO PRN (09:02)
[2017-06-23] MEDS: DILTIAZEM 240 MG CAP.ER.24H PO SCH (09:02)
[2017-06-23] MEDS ORDERED: WARFARIN 7.5 MG TABLET PO-COUM ONE (18:00)
== END 2017-06-23 11:45 | disposition home or self-care (01) | DRG 74 ==
LOC: ED 17:41 → EDIP 20:35 → 4WST 21:29
PROVIDERS: ADMIT Hospitalist; ATTEND Hospitalist
DX: M54.12 Radiculopathy, cervical region (principal); D68.59 Other primary thrombophilia; E11.51 Type 2 diabetes mellitus with diabetic peripheral angiopathy without gangrene; F11.20 Opioid dependence, uncomplicated; I11.0 Hypertensive heart disease with heart failure; I50.32 Chronic diastolic (congestive) heart failure; F68.10 Factitious disorder imposed on self, unspecified; M48.02 Spinal stenosis, cervical region; B19.20 Unspecified viral hepatitis C without hepatic coma; E78.5 Hyperlipidemia, unspecified; G89.29 Other chronic pain; M48.061 Spinal stenosis, lumbar region without neurogenic claudication; Z83.3 Family history of diabetes mellitus; Z86.14 Personal history of Methicillin resistant Staphylococcus aureus infection; Z86.711 Personal history of pulmonary embolism; Z87.891 Personal history of nicotine dependence; Z90.49 Acquired absence of other specified parts of digestive tract; Z91.14 Patient's other noncompliance with medication regimen; F41.9 Anxiety disorder, unspecified; Z80.8 Family history of malignant neoplasm of other organs or systems; Z76.5 Malingerer [conscious simulation]; Z88.6 Allergy status to analgesic agent; Z88.8 Allergy status to other drugs, medicaments and biological substances
CPT/HCPCS: 36415; 70450; 70551; 71020; 72156; 72158; 80047; 85025; 85610; 85730; 93005; 96374; 99156; 99157; J2250; J3010; J2060; J2310

== ENCOUNTER 2017-07-02 15:30 | Emergency (ER) | payer MEDICAID ==
[~2017-07-02] VITALS: Ht 172.7 cm; Wt 100.0 kg
[2017-07-02] MEDS ORDERED: SODIUM CHLORIDE 0.9% 1,000ML IVBOLUS ONE (16:00)
[2017-07-02] MEDS ORDERED: SODIUM CHLORIDE FLUSH 10ML SYR IVF ONE (16:00)
[2017-07-02 16:41] LABS: BLOOD UREA NITROGEN 10 mg/dL (7-18); WHITE BLOOD COUNT 5.9 x10^3/uL (3.4-10)
[2017-07-02 16:45] LABS: IS PT STATUS REG ER OR PRE ER? YES
[2017-07-02 16:55] VITALS: BP 155/90
[2017-07-02] MEDS ORDERED: HYDROmorphone 1 MG/ML, 1ML ONE (17:43)
[2017-07-02] MEDS ORDERED: ONDANSETRON 2MG/ML, 2ML IVPush ONE (18:00)
[2017-07-02] MEDS ORDERED: HYDROmorphone 1 MG/ML, 1ML IVPush ONE (18:00)
== END 2017-07-02 18:30 | disposition home or self-care (01) ==
LOC: ED 16:07
DX: M54.12 Radiculopathy, cervical region (principal); E78.5 Hyperlipidemia, unspecified; E11.9 Type 2 diabetes mellitus without complications; Z86.718 Personal history of other venous thrombosis and embolism; G43.909 Migraine, unspecified, not intractable, without status migrainosus; I10 Essential (primary) hypertension; Z90.49 Acquired absence of other specified parts of digestive tract
CPT/HCPCS: 36415; 70450; 71010; 80048; 82040; 84484; 85025; 85610; 85730; 93005; 96361; 96374; 99285; J1170; J7030

== ENCOUNTER 2017-08-01 13:27 | Emergency (ER) | payer MEDICAID ==
[~2017-08-01] VITALS: Ht 170.2 cm; Wt 103.0 kg
[2017-08-01 15:13] VITALS: BP 162/95
== END 2017-08-01 16:25 | disposition home or self-care (01) ==
LOC: ED 14:00
DX: S70.01XA Contusion of right hip, initial encounter (principal); M54.5 Low back pain; M54.6 Pain in thoracic spine; E11.9 Type 2 diabetes mellitus without complications; G89.29 Other chronic pain; I50.9 Heart failure, unspecified; I11.0 Hypertensive heart disease with heart failure; Z86.73 Personal history of transient ischemic attack (TIA), and cerebral infarction without residual deficits; X58.XXXA Exposure to other specified factors, initial encounter; Y93.89 Activity, other specified; Y92.89 Other specified places as the place of occurrence of the external cause; Y99.8 Other external cause status
CPT/HCPCS: 72072; 72110; 93005; 99284

== ENCOUNTER 2017-08-15 05:11 | Emergency (ER) | payer MEDICAID ==
[2017-08-15] MEDS ORDERED: FENTANYL PF 100 MCG/2ML ONE (05:49)
[2017-08-15] MEDS ORDERED: FENTANYL PF 100 MCG/2ML IM ONE (06:00)
[2017-08-15 06:01] LABS: BASOPHILS # (AUTO) 0.03 x10^3/uL (0-0.1); BASOPHILS % (AUTO) 1 % (0-1); EOSINOPHILS # (AUTO) 0.09 x10^3/uL (0-0.4); EOSINOPHILS % (AUTO) 2 % (1-7); LYMPHOCYTES # (AUTO) 1.62 x10^3/uL (1-3.4); LYMPHOCYTES % (AUTO) 26 % (22-44); MD NO; MEAN CORPUSCULAR HEMOGLOBIN 29.8 pg (27.5-34.5); MEAN CORPUSCULAR HGB CONC 33.2 g/dL (33.2-36.2); MEAN CORPUSCULAR VOLUME 89.8 fL (81-97); MEAN PLATELET VOLUME 8.5 fL (7.4-10.4); MONOCYTES # (AUTO) 0.43 x10^3/uL (0.2-0.8); MONOCYTES % (AUTO) 7 % (2-9); NEUTROPHILS # (AUTO) 4.05 x10^3/uL (1.8-6.8); NEUTROPHILS % (AUTO) 65 % (42-75); PLATELET COUNT 149 x10^3/uL (130-400); RED BLOOD COUNT 4.73 x10^6/uL (4.38-5.82); RED CELL DISTRIBUTION WIDTH 14.8 % (9.4-14.8)
[2017-08-15 06:11] LABS: ANION GAP 9 mmol/L (5-15); CALCIUM 8.3 mg/dL (8.5-10.1); CHLORIDE 115 mmol/L (98-107)
[2017-08-15 06:15] LABS: ALANINE AMINOTRANSFERASE 57 U/L (12-78); ALKALINE PHOSPHATASE 151 U/L (45-117); BILIRUBIN,TOTAL 0.3 mg/dL (0.2-1.0); TOTAL PROTEIN 7.5 g/dL (6.4-8.2)
[2017-08-15] MEDS ORDERED: CARV6.252 PO (06:28)
[2017-08-15] MEDS ORDERED: HYDR-3342 PO (06:29)
[2017-08-15 06:35] LABS: CULTURE INDICATED? NO; MICROSCOPIC NOT IND
[2017-08-15 06:57] VITALS: BP 162/90
== END 2017-08-15 07:03 | disposition home or self-care (01) ==
LOC: ED 06:20
DX: G89.29 Other chronic pain (principal); R10.11 Right upper quadrant pain; R10.13 Epigastric pain; I10 Essential (primary) hypertension; E78.5 Hyperlipidemia, unspecified; E11.40 Type 2 diabetes mellitus with diabetic neuropathy, unspecified; I11.0 Hypertensive heart disease with heart failure; I50.9 Heart failure, unspecified; G43.909 Migraine, unspecified, not intractable, without status migrainosus; Z88.8 Allergy status to other drugs, medicaments and biological substances; Z90.49 Acquired absence of other specified parts of digestive tract; Z90.89 Acquired absence of other organs
CPT/HCPCS: 36415; 74021; 80053; 81003; 83605; 83690; 85025; 96372; 99285; J3010

== ENCOUNTER 2017-08-25 09:00 | Emergency (ER) | payer MEDICAID ==
[~2017-08-25] VITALS: Ht 170.2 cm; Wt 102.4 kg
[~2017-08-25 09:00] MED LIST changes: +CARV6.252 PO; +HYDR-3342 PO
[2017-08-25] MEDS ORDERED: HYDROmorphone 2 MG/ML, 1ML ONE (10:08)
[2017-08-25] MEDS ORDERED: HYDROmorphone 1 MG/ML, 1ML IM ONE (10:30)
[2017-08-25 11:02] LABS: BASOPHILS # (AUTO) 0.03 x10^3/uL (0-0.1); BASOPHILS % (AUTO) 1 % (0-1); EOSINOPHILS # (AUTO) 0.15 x10^3/uL (0-0.4); EOSINOPHILS % (AUTO) 2 % (1-7); LYMPHOCYTES # (AUTO) 1.75 x10^3/uL (1-3.4); LYMPHOCYTES % (AUTO) 25 % (22-44); MD NO; MEAN CORPUSCULAR HEMOGLOBIN 29.5 pg (27.5-34.5); MEAN CORPUSCULAR HGB CONC 33.3 g/dL (33.2-36.2); MEAN CORPUSCULAR VOLUME 88.7 fL (81-97); MEAN PLATELET VOLUME 8.6 fL (7.4-10.4); MONOCYTES # (AUTO) 0.94 x10^3/uL (0.2-0.8); MONOCYTES % (AUTO) 14 % (2-9); NEUTROPHILS # (AUTO) 4.09 x10^3/uL (1.8-6.8); NEUTROPHILS % (AUTO) 59 % (42-75); PLATELET COUNT 193 x10^3/uL (130-400); RED BLOOD COUNT 5.18 x10^6/uL (4.38-5.82); RED CELL DISTRIBUTION WIDTH 15.5 % (9.4-14.8)
[2017-08-25 11:07] LABS: ALANINE AMINOTRANSFERASE 84 U/L (12-78); ALBUMIN 3.4 g/dL (3.4-5.0); ANION GAP 10 mmol/L (5-15); CALCIUM 8.5 mg/dL (8.5-10.1); CHLORIDE 112 mmol/L (98-107); CREATININE 0.81 mg/dL (0.7-1.3)
[2017-08-25 11:10] LABS: ALKALINE PHOSPHATASE 142 U/L (45-117); BILIRUBIN,TOTAL 0.4 mg/dL (0.2-1.0); TOTAL PROTEIN 8.3 g/dL (6.4-8.2)
[2017-08-25] MEDS ORDERED: HYDROmorphone 2MG TABLET PO ONE (11:54)
[2017-08-25 12:05] VITALS: BP 164/101
== END 2017-08-25 12:40 | disposition left against medical advice (07) ==
LOC: ED 10:11
DX: R10.33 Periumbilical pain (principal); I10 Essential (primary) hypertension
CPT/HCPCS: 36415; 74021; 80053; 83605; 83690; 85025; 96372; 99285; J1170

== ENCOUNTER 2017-09-10 15:28 | Emergency (ER) | payer MEDICAID ==
[~2017-09-10] VITALS: Ht 170.2 cm; Wt 100.0 kg
[2017-09-10] MEDS ORDERED: VITAMIN B 12 (15:42)
[2017-09-10] MEDS ORDERED: HYDROmorphone 1 MG/ML, 1ML ONE ×2 (16:44→18:30)
[2017-09-10] MEDS ORDERED: ONDANSETRON 2MG/ML, 2ML ONE (16:44)
[2017-09-10] MEDS ORDERED: SODIUM CHLORIDE 0.9% 1,000ML IVBOLUS ONE (17:00)
[2017-09-10] MEDS ORDERED: ONDANSETRON 2MG/ML, 2ML IVPush ONE (17:00)
[2017-09-10] MEDS ORDERED: SODIUM CHLORIDE FLUSH 10ML SYR IVF ONE (17:00)
[2017-09-10] MEDS: HYDROmorphone 1 MG/ML, 1ML IVPush PRN ×2 (17:58→18:33)
[2017-09-10 18:03] VITALS: BP 163/84
[2017-09-10 18:06] LABS: MEAN CORPUSCULAR HEMOGLOBIN 29.2 pg (27.5-34.5); MEAN CORPUSCULAR VOLUME 88.4 fL (81-97); MEAN PLATELET VOLUME 8.8 fL (7.4-10.4); PLATELET COUNT 150 x10^3/uL (130-400); RED BLOOD COUNT 4.41 x10^6/uL (4.38-5.82); RED CELL DISTRIBUTION WIDTH 16.3 % (9.4-14.8)
[2017-09-10 18:16] LABS: ALANINE AMINOTRANSFERASE 62 U/L (12-78); ALBUMIN 2.9 g/dL (3.4-5.0); ANION GAP 8 mmol/L (5-15); CALCIUM 8.1 mg/dL (8.5-10.1); CHLORIDE 112 mmol/L (98-107); CREATININE 0.56 mg/dL (0.7-1.3)
[2017-09-10 18:18] LABS: ALKALINE PHOSPHATASE 109 U/L (45-117); BILIRUBIN,TOTAL 0.5 mg/dL (0.2-1.0); TOTAL PROTEIN 7.1 g/dL (6.4-8.2)
[2017-09-10 18:25] LABS: MD YES
[2017-09-10 18:28] LABS: <RBC MORPHOLOGY> NORMAL; LYMPH#(MANUAL) 2.33 x10^3/uL (1-3.4); LYMPHS% (MANUAL) 31 % (22-44); MONOS#(MANUAL) 0.23 x10^3/uL (0.3-2.7); MONOS% (MANUAL) 3 % (2-9); SEG#(MANUAL) 4.95 x10^3/uL (1.8-6.8); SEGS% (MANUAL) 66 % (42-75)
[2017-09-10 18:29] LABS: <PLATELET ESTIMATE> ADEQUATE; <PLT MORPHOLOGY> NORMAL PLT MORPH
[2017-09-10] MEDS ORDERED: OMNIPAQUE 350 MG/ML, 100ML BOTTLE ONE (19:03)
== END 2017-09-10 20:06 | disposition home or self-care (01) ==
LOC: ED 15:34
DX: R10.9 Unspecified abdominal pain (principal); R11.2 Nausea with vomiting, unspecified; R19.7 Diarrhea, unspecified; E78.5 Hyperlipidemia, unspecified; G43.909 Migraine, unspecified, not intractable, without status migrainosus; I50.9 Heart failure, unspecified; E11.21 Type 2 diabetes mellitus with diabetic nephropathy; I11.0 Hypertensive heart disease with heart failure; Z90.49 Acquired absence of other specified parts of digestive tract
CPT/HCPCS: 36415; 36569; 74177; 76937; 77001; 80053; 83605; 85025; 87040; 96361; 96374; 96375; 96376; 99285; C1751; J1170; J2405; J7030; Q9967

== ENCOUNTER 2017-10-20 16:59 | Inpatient (IN) | payer MEDICAID ==
[~2017-10-20] VITALS: Ht 170.2 cm; Wt 103.4 kg
[~2017-10-20 16:59] MED LIST changes: +VITAMIN B 12
[2017-10-20] MEDS ORDERED: OMNIPAQUE 350 MG/ML, 100ML BOTTLE ONE (18:10)
[2017-10-20 18:18] LABS: BASOPHILS # (AUTO) 0.03 x10^3/uL (0-0.1); BASOPHILS % (AUTO) 1 % (0-1); EOSINOPHILS # (AUTO) 0.07 x10^3/uL (0-0.4); EOSINOPHILS % (AUTO) 1 % (1-7); LYMPHOCYTES # (AUTO) 1.63 x10^3/uL (1-3.4); LYMPHOCYTES % (AUTO) 21 % (22-44); MD NO; MEAN CORPUSCULAR HEMOGLOBIN 29.9 pg (27.5-34.5); MEAN CORPUSCULAR HGB CONC 33.5 g/dL (33.2-36.2); MEAN CORPUSCULAR VOLUME 89.5 fL (81-97); MEAN PLATELET VOLUME 8.1 fL (7.4-10.4); MONOCYTES # (AUTO) 0.78 x10^3/uL (0.2-0.8); MONOCYTES % (AUTO) 10 % (2-9); NEUTROPHILS # (AUTO) 5.19 x10^3/uL (1.8-6.8); NEUTROPHILS % (AUTO) 67 % (42-75); PLATELET COUNT 158 x10^3/uL (130-400); RED BLOOD COUNT 4.24 x10^6/uL (4.38-5.82); RED CELL DISTRIBUTION WIDTH 16.3 % (9.4-14.8)
[2017-10-20 18:26] LABS: INTERNATIONAL NORMALIZED RATIO 1.13 (0.93-1.1); PROTHROMBIN TIME 11.7 Seconds (9.6-11.5)
[2017-10-20] MEDS ORDERED: POTASSIUM CHLORIDE 20 MEQ TAB.ER.PRT PO ONE (19:00)
[2017-10-20] MEDS ORDERED: ALTEPLASE 9 MG in SYRINGE 1 EA IV ONE ×2 (19:00→19:30)
[2017-10-20] MEDS ORDERED: ALTEPLASE 81 MG in BAG 1 EACH IV ONE (19:00)
[2017-10-20] MEDS ORDERED: POTASSIUM CHLORIDE 20 MEQ TAB.ER.PRT ONE (19:24)
[2017-10-20] MEDS ORDERED: ALTEPLASE 0 MG in SYRINGE 1 EA IV ONE (19:30)
[2017-10-20] MEDS: SODIUM CHLORIDE 0.9% 1,000 ML IV SCH (20:47)
[2017-10-20] MEDS ORDERED: HYDROmorphone 2MG TABLET ONE (20:48)
[2017-10-20] MEDS: HYDROmorphone 4MG TABLET PO PRN (20:50)
[2017-10-20] MEDS ORDERED: DOCUSATE 100 MG CAPSULE PO PRN (21:00)
[2017-10-20] MEDS ORDERED: ONDANSETRON 2MG/ML, 2ML IVPush PRN (21:00)
[2017-10-20] MEDS: LACTULOSE 10 GM/15 ML UDC PO SCH (21:00)
[2017-10-20] MEDS ORDERED: ACETAMINOPHEN 650 MG/20.3 ML UDC PO PRN (21:00)
[2017-10-20] MEDS ORDERED: HYDROmorphone 2 MG/ML, 1ML IVPush PRN (21:00)
[2017-10-20] MEDS: ATORVASTATIN 80 MG TABLET PO SCH (21:00)
[2017-10-20] MEDS: CARVEDILOL 12.5 MG TABLET PO SCH (21:28)
[2017-10-20] MEDS ORDERED: LORazepam 1MG TABLET ONE (22:49)
[2017-10-20 22:52] VITALS: BP 161/96
[2017-10-20] MEDS ORDERED: LORazepam 1MG TABLET PO ONE (23:00)
[2017-10-21] MEDS ORDERED: MORPHINE SULFATE 4 MG/ML, 1ML IVPush ONE (01:00)
[2017-10-21] MEDS: HYDROmorphone 4MG TABLET PO PRN ×4 (03:56→23:05)
[2017-10-21 04:00] VITALS: BP 146/78
[2017-10-21 08:54] LABS: CHOL/HDL RATIO 2.5
[2017-10-21] MEDS ORDERED: FUROSEMIDE 40 MG TABLET PO SCH (09:00)
[2017-10-21] MEDS: LACTULOSE 10 GM/15 ML UDC PO SCH ×2 (09:00→20:02)
[2017-10-21] MEDS: POLYETHYLENE GLYCOL 17 GM PACKET PO SCH (09:00)
[2017-10-21] MEDS: SODIUM CHLORIDE 0.9% 1,000 ML IV SCH ×2 (09:22→23:09)
[2017-10-21] MEDS: POTASSIUM CHLORIDE 10 MEQ TABLET.ER PO SCH (09:22)
[2017-10-21] MEDS: CARVEDILOL 12.5 MG TABLET PO SCH ×2 (09:22→20:02)
[2017-10-21 09:45] LABS: ANION GAP 8 mmol/L (5-15); CALCIUM 7.8 mg/dL (8.5-10.1); CHLORIDE 112 mmol/L (98-107); CREATININE 0.98 mg/dL (0.7-1.3)
[2017-10-21 11:29] VITALS: BP 145/82
[2017-10-21] MEDS ORDERED: HYDROmorphone 2MG TABLET ONE ×2 (16:19→23:02)
[2017-10-21] MEDS: ATORVASTATIN 80 MG TABLET PO SCH (20:02)
[2017-10-21 20:05] VITALS: BP 164/94
[2017-10-21] MEDS ORDERED: CALCIUM CARBONATE 500 MG TAB.CHEW PO PRN (21:30)
[2017-10-21] MEDS ORDERED: TEMAZEPAM 15 MG CAPSULE PO ONE (21:30)
[2017-10-22 03:17] VITALS: BP 137/84
[2017-10-22] MEDS ORDERED: HYDROmorphone 2MG TABLET ONE ×2 (05:39→11:24)
[2017-10-22] MEDS: HYDROmorphone 4MG TABLET PO PRN ×2 (05:41→11:27)
[2017-10-22] MEDS: POTASSIUM CHLORIDE 10 MEQ TABLET.ER PO SCH (08:23)
[2017-10-22] MEDS: CARVEDILOL 12.5 MG TABLET PO SCH (08:23)
[2017-10-22] MEDS: POLYETHYLENE GLYCOL 17 GM PACKET PO SCH (09:00)
[2017-10-22] MEDS: LACTULOSE 10 GM/15 ML UDC PO SCH (09:00)
[2017-10-22 11:29] VITALS: BP 162/96
[2017-10-22] MEDS: SODIUM CHLORIDE 0.9% 1,000 ML IV SCH (12:38)
== END 2017-10-22 14:38 | disposition home or self-care (01) | DRG 62 ==
LOC: ED 19:24 → EDIP 19:39 → CCU 21:15 → 4EST 10-21 11:28
PROVIDERS: ADMIT Hospitalist; ATTEND Hospitalist
DX: I63.9 Cerebral infarction, unspecified (principal); I50.32 Chronic diastolic (congestive) heart failure; E11.51 Type 2 diabetes mellitus with diabetic peripheral angiopathy without gangrene; I11.0 Hypertensive heart disease with heart failure; F11.20 Opioid dependence, uncomplicated; B19.20 Unspecified viral hepatitis C without hepatic coma; E66.9 Obesity, unspecified; F17.210 Nicotine dependence, cigarettes, uncomplicated; G89.4 Chronic pain syndrome; Z83.3 Family history of diabetes mellitus; Z86.14 Personal history of Methicillin resistant Staphylococcus aureus infection; Z86.19 Personal history of other infectious and parasitic diseases; Z86.711 Personal history of pulmonary embolism; Z86.718 Personal history of other venous thrombosis and embolism; Z90.49 Acquired absence of other specified parts of digestive tract; Z88.6 Allergy status to analgesic agent; Z88.8 Allergy status to other drugs, medicaments and biological substances; Z80.9 Family history of malignant neoplasm, unspecified; Z68.35 Body mass index [BMI] 35.0-35.9, adult
CPT/HCPCS: 36415; 70450; 70496; 80047; 80048; 80061; 85025; 85610; 85730; 87081; 93005; 93880; 96365; J2997; Q9967; 92523-GN; J7030

== ENCOUNTER 2017-10-25 01:49 | Emergency (ER) | payer MEDICAID ==
[~2017-10-25] VITALS: Ht 170.2 cm; Wt 99.5 kg
[2017-10-25] MEDS ORDERED: BUTALB/APAP/CAFFEINE 50MG/325MG/40MG PO ONE (02:30)
[2017-10-25] MEDS ORDERED: SODIUM CHLORIDE 0.9% 1,000ML IVBOLUS ONE (02:30)
[2017-10-25] MEDS ORDERED: DIPHENHYDRAMINE 50 MG/ML, 1ML IVPush ONE (02:30)
[2017-10-25] MEDS ORDERED: ONDANSETRON 2MG/ML, 2ML IVPush ONE (02:30)
[2017-10-25] MEDS ORDERED: ONDANSETRON 2MG/ML, 2ML ONE (02:40)
[2017-10-25] MEDS ORDERED: DIPHENHYDRAMINE 50 MG/ML, 1ML ONE (02:40)
[2017-10-25 02:51] LABS: BASOPHILS # (AUTO) 0.01 x10^3/uL (0-0.1); BASOPHILS % (AUTO) 0 % (0-1); EOSINOPHILS # (AUTO) 0.16 x10^3/uL (0-0.4); EOSINOPHILS % (AUTO) 2 % (1-7); LYMPHOCYTES # (AUTO) 1.57 x10^3/uL (1-3.4); LYMPHOCYTES % (AUTO) 23 % (22-44); MD NO; MEAN CORPUSCULAR HGB CONC 33.4 g/dL (33.2-36.2); MEAN CORPUSCULAR VOLUME 89.8 fL (81-97); MEAN PLATELET VOLUME 8.6 fL (7.4-10.4); MONOCYTES # (AUTO) 0.68 x10^3/uL (0.2-0.8); MONOCYTES % (AUTO) 10 % (2-9); NEUTROPHILS # (AUTO) 4.47 x10^3/uL (1.8-6.8); NEUTROPHILS % (AUTO) 65 % (42-75); PLATELET COUNT 176 x10^3/uL (130-400); RED BLOOD COUNT 4.62 x10^6/uL (4.38-5.82); RED CELL DISTRIBUTION WIDTH 16.1 % (9.4-14.8)
[2017-10-25 03:01] LABS: ALBUMIN 3.4 g/dL (3.4-5.0); ANION GAP 9 mmol/L (5-15); CALCIUM 8.5 mg/dL (8.5-10.1); CHLORIDE 114 mmol/L (98-107); CREATININE 0.97 mg/dL (0.7-1.3)
[2017-10-25] MEDS ORDERED: HYDROmorphone 2MG TABLET PO STA (04:36)
[2017-10-25] MEDS ORDERED: HYDROmorphone 2MG TABLET ONE (04:45)
[2017-10-25 05:31] VITALS: BP 148/89
== END 2017-10-25 05:34 | disposition home or self-care (01) ==
LOC: ED 03:25
DX: G44.219 Episodic tension-type headache, not intractable (principal); Z76.5 Malingerer [conscious simulation]; Z90.49 Acquired absence of other specified parts of digestive tract; Z72.9 Problem related to lifestyle, unspecified; Z86.718 Personal history of other venous thrombosis and embolism
CPT/HCPCS: 36415; 70450; 80048; 82040; 85025; 96361; 96374; 96375; 99285; J1200; J2405; J7030

== ENCOUNTER 2018-04-19 13:26 | Emergency (ER) | payer MEDICAID ==
[~2018-04-19] VITALS: Ht 170.2 cm; Wt 89.5 kg
[~2018-04-19 13:26] MED LIST changes: -AMLO5TAB2 PO; +AMLO5TAB7 PO
[2018-04-19] MEDS ORDERED: FENTANYL PF 100 MCG/2ML IM ONE (14:30)
[2018-04-19] MEDS ORDERED: FENTANYL PF 100 MCG/2ML ONE (14:54)
[2018-04-19 15:07] LABS: BASOPHILS # (AUTO) 0.06 x10^3/uL (0-0.1); BASOPHILS % (AUTO) 1 % (0-1); EOSINOPHILS # (AUTO) 0.05 x10^3/uL (0-0.4); EOSINOPHILS % (AUTO) 1 % (1-7); LYMPHOCYTES # (AUTO) 1.01 x10^3/uL (1-3.4); LYMPHOCYTES % (AUTO) 17 % (22-44); MD NO; MEAN CORPUSCULAR HEMOGLOBIN 31.3 pg (27.5-34.5); MEAN CORPUSCULAR HGB CONC 33.8 g/dL (33.2-36.2); MEAN CORPUSCULAR VOLUME 92.6 fL (81-97); MONOCYTES # (AUTO) 0.71 x10^3/uL (0.2-0.8); MONOCYTES % (AUTO) 12 % (2-9); NEUTROPHILS # (AUTO) 4.21 x10^3/uL (1.8-6.8); NEUTROPHILS % (AUTO) 70 % (42-75); PLATELET COUNT 114 x10^3/uL (130-400); RED BLOOD COUNT 4.21 x10^6/uL (4.38-5.82); RED CELL DISTRIBUTION WIDTH 14.6 % (9.4-14.8)
[2018-04-19 15:14] LABS: INTERNATIONAL NORMALIZED RATIO 1.1 (0.93-1.1); PROTHROMBIN TIME 11.4 Seconds (9.6-11.5)
[2018-04-19 15:18] LABS: ALBUMIN 2.6 g/dL (3.4-5.0); ANION GAP 10 mmol/L (5-15); CALCIUM 8.1 mg/dL (8.5-10.1); CHLORIDE 115 mmol/L (98-107)
[2018-04-19 15:22] LABS: ALANINE AMINOTRANSFERASE 68 U/L (12-78); ALKALINE PHOSPHATASE 185 U/L (45-117); BILIRUBIN,TOTAL 0.7 mg/dL (0.2-1.0); CREATININE 0.73 mg/dL (0.7-1.3); TOTAL PROTEIN 6.5 g/dL (6.4-8.2)
[2018-04-19 15:29] LABS: CULTURE INDICATED? NO; MICROSCOPIC NOT IND
[2018-04-19] MEDS ORDERED: DIPHENHYDRAMINE 50 MG/ML, 1ML IM ONE (16:00)
[2018-04-19 17:00] VITALS: BP 157/87
== END 2018-04-19 14:01 | disposition home or self-care (01) ==
LOC: ED 13:50
DX: R10.84 Generalized abdominal pain (principal); R11.2 Nausea with vomiting, unspecified; E78.5 Hyperlipidemia, unspecified; E11.9 Type 2 diabetes mellitus without complications; I50.9 Heart failure, unspecified; I11.0 Hypertensive heart disease with heart failure; Z79.82 Long term (current) use of aspirin; Z88.8 Allergy status to other drugs, medicaments and biological substances; Z88.1 Allergy status to other antibiotic agents
CPT/HCPCS: 36415; 74021; 80053; 81003; 83605; 83690; 85025; 85610; 96372; 99285; J3010

== ENCOUNTER 2018-05-05 07:36 | Observation (INO) | payer MEDICAID ==
[~2018-05-05] VITALS: Ht 170.2 cm; Wt 98.4 kg
[2018-05-05] MEDS ORDERED: METOCLOPRAMIDE 5 MG/ML, 2ML IVPush ONE (09:00)
[2018-05-05] MEDS ORDERED: morphine SULFATE 10 MG/ML, 1ML IVPush ONE (09:00)
[2018-05-05] MEDS ORDERED: DEXAMETHASONE 4 MG/ML, 1ML PO ONE (09:00)
[2018-05-05 09:43] LABS: INTERNATIONAL NORMALIZED RATIO 1.12 (0.93-1.1); PROTHROMBIN TIME 11.6 Seconds (9.6-11.5)
[2018-05-05 09:45] LABS: BASOPHILS # (AUTO) 0.04 x10^3/uL (0-0.1); BASOPHILS % (AUTO) 1 % (0-1); EOSINOPHILS # (AUTO) 0.06 x10^3/uL (0-0.4); EOSINOPHILS % (AUTO) 1 % (1-7); LYMPHOCYTES % (AUTO) 24 % (22-44); MD NO; MEAN CORPUSCULAR HEMOGLOBIN 31.2 pg (27.5-34.5); MEAN CORPUSCULAR HGB CONC 34.1 g/dL (33.2-36.2); MEAN CORPUSCULAR VOLUME 91.7 fL (81-97); MEAN PLATELET VOLUME 8.9 fL (7.4-10.4); MONOCYTES % (AUTO) 9 % (2-9); NEUTROPHILS # (AUTO) 4.36 x10^3/uL (1.8-6.8); NEUTROPHILS % (AUTO) 65 % (42-75); PLATELET COUNT 182 x10^3/uL (130-400); RED BLOOD COUNT 4.97 x10^6/uL (4.38-5.82); RED CELL DISTRIBUTION WIDTH 14.7 % (9.4-14.8)
[2018-05-05] MEDS ORDERED: MORPHINE SULFATE 4 MG/ML, 1ML ONE (09:48)
[2018-05-05] MEDS ORDERED: METOCLOPRAMIDE 5 MG/ML, 2ML ONE (09:48)
[2018-05-05] MEDS ORDERED: DEXAMETHASONE 4 MG/ML, 5ML ONE (09:48)
[2018-05-05 09:57] LABS: TROPONIN I < 0.015 ng/mL (0.000-0.045)
[2018-05-05 10:07] LABS: AMPHETAMINE SCREEN, URINE Negative (Negative); BARBITURATE SCREEN, URINE Negative (Negative); BENZODIAZEPINE SCREEN, URINE Negative (Negative); CANNABINOID SCREEN, URINE Positive (Negative); COCAINE SCREEN, URINE Negative (Negative); METHADONE SCREEN, URINE Negative (Negative); OPIATE SCREEN, URINE Positive (Negative)
[2018-05-05] MEDS ORDERED: HYDR4TAB48 PO (10:22)
[2018-05-05] MEDS ORDERED: HYDROmorphone 2 MG/ML, 1ML ONE (11:00)
[2018-05-05] MEDS ORDERED: HYDROmorphone 1 MG/ML, 1ML IV ONE (11:00)
[2018-05-05] MEDS ORDERED: OMNIPAQUE 350 MG/ML, 100ML BOTTLE ONE (11:39)
[2018-05-05] MEDS ORDERED: ONDANSETRON ODT 4 MG PO PRN (12:00)
[2018-05-05] MEDS ORDERED: ONDANSETRON 2MG/ML, 2ML IVPush PRN (12:00)
[2018-05-05] MEDS ORDERED: TRAZODONE 50MG TABLET PO PRN (12:00)
[2018-05-05] MEDS ORDERED: ACETAMINOPHEN 325 MG TABLET PO PRN (12:00)
[2018-05-05] MEDS ORDERED: LABETALOL 5MG/ML, 20ML IVPush PRN (12:00)
[2018-05-05] MEDS ORDERED: DOCUSATE 100 MG CAPSULE PO PRN (12:00)
[2018-05-05 12:42] VITALS: BP 164/97
[2018-05-05 12:56] VITALS: BP 143/95
[2018-05-05] MEDS: HYDROmorphone 4MG TABLET PO PRN ×2 (13:13→19:51)
[2018-05-05] MEDS: VALPROATE SODIUM 500 MG in SODIUM CHLORIDE 0.9% 100 ML IV SCH (13:31)
[2018-05-05 16:34] VITALS: BP 167/97
[2018-05-05] MEDS ORDERED: HYDROmorphone 2MG TABLET PO ONE (17:00)
[2018-05-05] MEDS ORDERED: HYDROmorphone 4MG TABLET ONE (17:16)
[2018-05-05 19:47] VITALS: BP 153/104
[2018-05-05] MEDS: CARVEDILOL 12.5 MG TABLET PO SCH (19:51)
[2018-05-05] MEDS ORDERED: ZOLPIDEM 10MG TABLET PO PRN (20:30)
[2018-05-06 00:57] VITALS: BP 159/89
[2018-05-06] MEDS: VALPROATE SODIUM 500 MG in SODIUM CHLORIDE 0.9% 100 ML IV SCH (00:59)
[2018-05-06] MEDS: HYDROmorphone 4MG TABLET PO PRN ×4 (02:02→21:50)
[2018-05-06 05:24] LABS: ALANINE AMINOTRANSFERASE 69 U/L (12-78); ANION GAP 11 mmol/L (5-15); CALCIUM 8.3 mg/dL (8.5-10.1); CHLORIDE 110 mmol/L (98-107); CREATININE 1.06 mg/dL (0.7-1.3)
[2018-05-06 05:27] LABS: ALKALINE PHOSPHATASE 134 U/L (45-117); BILIRUBIN,TOTAL 0.4 mg/dL (0.2-1.0); TOTAL PROTEIN 7.2 g/dL (6.4-8.2)
[2018-05-06 05:42] LABS: BASOPHILS % (AUTO) 0 % (0-1); EOSINOPHILS % (AUTO) 0 % (1-7); LYMPHOCYTES # (AUTO) 1.22 x10^3/uL (1-3.4); LYMPHOCYTES % (AUTO) 8 % (22-44); MD NO; MEAN CORPUSCULAR HEMOGLOBIN 30.8 pg (27.5-34.5); MEAN CORPUSCULAR HGB CONC 33.7 g/dL (33.2-36.2); MEAN CORPUSCULAR VOLUME 91.5 fL (81-97); MEAN PLATELET VOLUME 8.9 fL (7.4-10.4); MONOCYTES # (AUTO) 1.09 x10^3/uL (0.2-0.8); MONOCYTES % (AUTO) 7 % (2-9); NEUTROPHILS # (AUTO) 13.02 x10^3/uL (1.8-6.8); NEUTROPHILS % (AUTO) 85 % (42-75); PLATELET COUNT 155 x10^3/uL (130-400); RED BLOOD COUNT 4.53 x10^6/uL (4.38-5.82); RED CELL DISTRIBUTION WIDTH 14.9 % (9.4-14.8)
[2018-05-06 06:49] VITALS: BP 165/88
[2018-05-06] MEDS: CARVEDILOL 12.5 MG TABLET PO SCH ×2 (08:05→20:52)
[2018-05-06] MEDS: DIVALPROEX 500 MG TABLET.DR PO SCH ×2 (10:32→20:52)
[2018-05-06 13:06] VITALS: BP 113/78
[2018-05-06] MEDS ORDERED: LORazepam 2 MG/ML, 1ML IVPush ONE (13:30)
[2018-05-06] MEDS ORDERED: MELATONIN 5 MG TABLET PO PRN (16:00)
[2018-05-06 20:50] VITALS: BP 152/88
[2018-05-07 01:10] VITALS: BP 159/90
[2018-05-07] MEDS: HYDROmorphone 4MG TABLET PO PRN (04:11)
[2018-05-07 07:26] VITALS: BP 145/84
[2018-05-07] MEDS: DIVALPROEX 500 MG TABLET.DR PO SCH (08:03)
[2018-05-07] MEDS: CARVEDILOL 12.5 MG TABLET PO SCH (08:03)
[2018-05-07] MEDS ORDERED: DIVA-61 PO (08:49)
== END 2018-05-07 10:15 | disposition home or self-care (01) ==
LOC: ED 08:47 → INTOOBSV 10:41 → EDIP 10:41 → 5SO 12:34
PROVIDERS: ADMIT Internal Medicine; ATTEND Internal Medicine
DX: G43.909 Migraine, unspecified, not intractable, without status migrainosus (principal); I50.42 Chronic combined systolic (congestive) and diastolic (congestive) heart failure; K92.2 Gastrointestinal hemorrhage, unspecified; G31.89 Other specified degenerative diseases of nervous system; D72.829 Elevated white blood cell count, unspecified; E11.51 Type 2 diabetes mellitus with diabetic peripheral angiopathy without gangrene; E44.1 Mild protein-calorie malnutrition; E78.5 Hyperlipidemia, unspecified; F11.20 Opioid dependence, uncomplicated; F17.200 Nicotine dependence, unspecified, uncomplicated; G43.109 Migraine with aura, not intractable, without status migrainosus; I11.0 Hypertensive heart disease with heart failure; G89.4 Chronic pain syndrome; I25.2 Old myocardial infarction; M19.90 Unspecified osteoarthritis, unspecified site; W19.XXXA Unspecified fall, initial encounter; W22.09XA Striking against other stationary object, initial encounter; Y92.002 Bathroom of unspecified non-institutional (private) residence as the place of occurrence of the external cause; Z86.14 Personal history of Methicillin resistant Staphylococcus aureus infection; Z86.711 Personal history of pulmonary embolism; Z86.718 Personal history of other venous thrombosis and embolism; Z86.73 Personal history of transient ischemic attack (TIA), and cerebral infarction without residual deficits; Z95.828 Presence of other vascular implants and grafts
CPT/HCPCS: 36415; 70450; 70496; 70498; 80047; 80053; 80307; 82962; 84484; 85025; 85610; 85730; 93005; 96365; 96366; 96375; 97162; 99285; G0378; G8978; G8979; G8980; J1100; J1170; J2060; J2270; J2765; Q9967

== ENCOUNTER 2018-07-22 15:47 | Emergency (ER) | payer MEDICAID ==
[~2018-07-22] VITALS: Ht 170.2 cm; Wt 94.5 kg
[~2018-07-22 15:47] MED LIST changes: +AMLO-150 PO; -AMLO5TAB7 PO; +DIVA-61 PO
[2018-07-22] MEDS ORDERED: POTASSIUM PO (16:23)
[2018-07-22] MEDS ORDERED: MIRALAX (16:23)
[2018-07-22] MEDS ORDERED: ONDANSETRON 2MG/ML, 2ML ONE (16:27)
[2018-07-22] MEDS ORDERED: MORPHINE SULFATE 4 MG/ML, 1ML ONE ×2 (16:27→19:28)
[2018-07-22] MEDS ORDERED: ONDANSETRON 2MG/ML, 2ML IVPush ONE (16:30)
[2018-07-22] MEDS ORDERED: SODIUM CHLORIDE 0.9% 1,000ML IVBOLUS ONE (16:30)
[2018-07-22 16:51] LABS: BASOPHILS # (AUTO) 0.04 x10^3/uL (0-0.1); BASOPHILS % (AUTO) 1 % (0-1); EOSINOPHILS # (AUTO) 0.05 x10^3/uL (0-0.4); EOSINOPHILS % (AUTO) 1 % (1-7); LYMPHOCYTES # (AUTO) 0.61 x10^3/uL (1-3.4); LYMPHOCYTES % (AUTO) 7 % (22-44); MD NO; MEAN CORPUSCULAR HEMOGLOBIN 30.9 pg (27.5-34.5); MEAN CORPUSCULAR HGB CONC 33.6 g/dL (33.2-36.2); MEAN PLATELET VOLUME 8.8 fL (7.4-10.4); MONOCYTES # (AUTO) 0.74 x10^3/uL (0.2-0.8); MONOCYTES % (AUTO) 9 % (2-9); NEUTROPHILS # (AUTO) 7.32 x10^3/uL (1.8-6.8); NEUTROPHILS % (AUTO) 84 % (42-75); PLATELET COUNT 130 x10^3/uL (130-400); RED BLOOD COUNT 4.88 x10^6/uL (4.38-5.82); RED CELL DISTRIBUTION WIDTH 14.3 % (9.4-14.8)
[2018-07-22 17:04] LABS: ALBUMIN 3.3 g/dL (3.4-5.0); ANION GAP 8 mmol/L (5-15); CALCIUM 8.8 mg/dL (8.5-10.1); CHLORIDE 108 mmol/L (98-107)
[2018-07-22 17:08] LABS: ALANINE AMINOTRANSFERASE 56 U/L (12-78); ALKALINE PHOSPHATASE 144 U/L (45-117); BILIRUBIN,TOTAL 0.5 mg/dL (0.2-1.0); CREATININE 0.86 mg/dL (0.7-1.3); TOTAL PROTEIN 7.9 g/dL (6.4-8.2)
[2018-07-22] MEDS: MORPHINE SULFATE 4 MG/ML, 1ML IVPush PRN ×2 (17:43→19:30)
[2018-07-22] MEDS ORDERED: OMNIPAQUE 350 MG/ML, 100ML BOTTLE ONE (18:42)
[2018-07-22 19:32] VITALS: BP 167/92
[2018-07-22 20:00] LABS: MICROSCOPIC NOT IND
[2018-07-22 20:06] LABS: CULTURE INDICATED? NO
[2018-07-22] MEDS ORDERED: METOCLOPRAMIDE 5 MG/ML, 2ML IVPush ONE (20:30)
[2018-07-22] MEDS ORDERED: DIPHENHYDRAMINE 50 MG/ML, 1ML IVPush ONE (20:30)
[2018-07-22] MEDS ORDERED: MIDAZOLAM 1 MG/ML, 2ML IVPush ONE ×2 (20:30→21:00)
[2018-07-22] MEDS ORDERED: METOCLOPRAMIDE 5 MG/ML, 2ML ONE (20:49)
[2018-07-22] MEDS ORDERED: MIDAZOLAM 1 MG/ML, 2ML ONE (20:49)
[2018-07-22] MEDS ORDERED: DIPHENHYDRAMINE 50 MG/ML, 1ML ONE (20:49)
[2018-07-22] MEDS ORDERED: ENOXAPARIN 40 MG/0.4 ML SQ SCH (21:00)
[2018-07-22] MEDS ORDERED: morphine SULFATE 10 MG/ML, 1ML IVPush PRN (21:00)
[2018-07-22] MEDS ORDERED: ONDANSETRON 2MG/ML, 2ML IVPush PRN (21:00)
[2018-07-22] MEDS ORDERED: hydrALAzine 20 MG/ML, 1ML IV PRN (21:00)
== END 2018-07-22 21:46 | disposition left against medical advice (07) ==
LOC: SUATTDRO 20:16 → ED 20:21 → EDIP 20:50 → UNDOADMIN 20:50 → ED 21:46
PROVIDERS: ATTEND Hospitalist
DX: K56.609 Unspecified intestinal obstruction, unspecified as to partial versus complete obstruction (principal); G89.4 Chronic pain syndrome; I11.9 Hypertensive heart disease without heart failure; I50.32 Chronic diastolic (congestive) heart failure; I73.9 Peripheral vascular disease, unspecified; I25.2 Old myocardial infarction; E78.5 Hyperlipidemia, unspecified; E11.9 Type 2 diabetes mellitus without complications; G43.909 Migraine, unspecified, not intractable, without status migrainosus; Z86.19 Personal history of other infectious and parasitic diseases
CPT/HCPCS: 36415; 74022; 74177; 80053; 81003; 83690; 85025; 96361; 96374; 96375; 96376; 99284; J2405; J7030; Q9967

== ENCOUNTER 2018-08-02 00:05 | Emergency (ER) | payer MEDICAID ==
[~2018-08-02] VITALS: Ht 170.2 cm; Wt 104.0 kg
[~2018-08-02 00:05] MED LIST changes: +MIRALAX; +POTASSIUM PO
[2018-08-02] MEDS ORDERED: HYDROcodone/APAP 5/325 TABLET ONE (00:29)
[2018-08-02] MEDS ORDERED: HYDROcodone/APAP 5/325 TABLET PO PRN (00:30)
[2018-08-02 01:42] VITALS: BP 128/80
== END 2018-08-02 02:52 | disposition home or self-care (01) ==
LOC: ED 01:06
DX: L03.115 Cellulitis of right lower limb (principal); M25.571 Pain in right ankle and joints of right foot; I50.9 Heart failure, unspecified; G43.909 Migraine, unspecified, not intractable, without status migrainosus; E78.5 Hyperlipidemia, unspecified; I11.0 Hypertensive heart disease with heart failure; E11.9 Type 2 diabetes mellitus without complications; Z86.19 Personal history of other infectious and parasitic diseases
CPT/HCPCS: 99284

== ENCOUNTER 2018-08-08 11:03 | Emergency (ER) | payer MEDICAID ==
[~2018-08-08] VITALS: Ht 170.2 cm; Wt 99.9 kg
[2018-08-08] MEDS ORDERED: ALBUTEROL/IPRATROPIUM 2.5MG/0.5MG, 3 ML ONE (11:27)
[2018-08-08] MEDS ORDERED: ACETAMINOPHEN 325 MG TABLET ONE (11:55)
[2018-08-08] MEDS ORDERED: MORP30TA81 PO (11:59)
[2018-08-08] MEDS ORDERED: SODIUM CHLORIDE FLUSH 10ML SYR IVF ONE (12:00)
[2018-08-08] MEDS ORDERED: ACETAMINOPHEN 325 MG TABLET PO ONE (12:00)
[2018-08-08 12:21] LABS: BASOPHILS % (AUTO) 0 % (0-1); EOSINOPHILS # (AUTO) 0.02 x10^3/uL (0-0.4); EOSINOPHILS % (AUTO) 0 % (1-7); LYMPHOCYTES # (AUTO) 0.96 x10^3/uL (1-3.4); LYMPHOCYTES % (AUTO) 15 % (22-44); MD NO; MEAN CORPUSCULAR HEMOGLOBIN 30.3 pg (27.5-34.5); MEAN CORPUSCULAR HGB CONC 33.6 g/dL (33.2-36.2); MEAN CORPUSCULAR VOLUME 90.3 fL (81-97); MEAN PLATELET VOLUME 8.8 fL (7.4-10.4); MONOCYTES # (AUTO) 0.55 x10^3/uL (0.2-0.8); MONOCYTES % (AUTO) 9 % (2-9); NEUTROPHILS # (AUTO) 4.75 x10^3/uL (1.8-6.8); NEUTROPHILS % (AUTO) 76 % (42-75); PLATELET COUNT 147 x10^3/uL (130-400); RED BLOOD COUNT 4.53 x10^6/uL (4.38-5.82); RED CELL DISTRIBUTION WIDTH 14.9 % (9.4-14.8)
[2018-08-08 13:53] LABS: ALBUMIN 3.3 g/dL (3.4-5.0); ANION GAP 6 mmol/L (5-15); CALCIUM 8.9 mg/dL (8.5-10.1); CHLORIDE 109 mmol/L (98-107)
[2018-08-08 13:58] LABS: ALANINE AMINOTRANSFERASE 69 U/L (12-78); ALKALINE PHOSPHATASE 190 U/L (45-117); BILIRUBIN,TOTAL 0.5 mg/dL (0.2-1.0); CREATININE 0.77 mg/dL (0.7-1.3); TOTAL PROTEIN 8.4 g/dL (6.4-8.2); TROPONIN I < 0.015 ng/mL (0.000-0.045)
[2018-08-08 17:35] VITALS: BP 134/75
[2018-08-08 17:38] LABS: TROPONIN I < 0.015 ng/mL (0.000-0.045)
== END 2018-08-08 17:57 | disposition left against medical advice (07) ==
LOC: ED 12:08
DX: R07.2 Precordial pain (principal); F17.200 Nicotine dependence, unspecified, uncomplicated; I50.9 Heart failure, unspecified; E11.21 Type 2 diabetes mellitus with diabetic nephropathy; I11.0 Hypertensive heart disease with heart failure; E78.5 Hyperlipidemia, unspecified; I25.2 Old myocardial infarction
CPT/HCPCS: 36415; 36569; 71045; 71275; 76937; 77001; 80053; 84484; 85025; 85379; 93005; 99284; C1751

== ENCOUNTER 2018-09-20 16:17 | Emergency (ER) | payer MEDICAID ==
[~2018-09-20] VITALS: Ht 170.2 cm; Wt 97.5 kg
[~2018-09-20 16:17] MED LIST changes: +MORP30TA81 PO; -MULT-224 PO; +MULT-642 PO
[2018-09-20] MEDS ORDERED: SODIUM CHLORIDE FLUSH 10ML SYR IVF ONE (16:30)
[2018-09-20 18:10] LABS: MEAN CORPUSCULAR HEMOGLOBIN 30.9 pg (27.5-34.5); MEAN CORPUSCULAR HGB CONC 33.9 g/dL (33.2-36.2); MEAN PLATELET VOLUME 8.8 fL (7.4-10.4); PLATELET COUNT 131 x10^3/uL (130-400); RED BLOOD COUNT 4.68 x10^6/uL (4.38-5.82); RED CELL DISTRIBUTION WIDTH 15.4 % (9.4-14.8)
[2018-09-20 18:21] LABS: ALANINE AMINOTRANSFERASE 68 U/L (12-78); ALBUMIN 3.1 g/dL (3.4-5.0); ANION GAP 10 mmol/L (5-15); CHLORIDE 110 mmol/L (98-107); CREATININE 0.79 mg/dL (0.7-1.3)
[2018-09-20 18:23] LABS: ALKALINE PHOSPHATASE 146 U/L (45-117); BILIRUBIN,TOTAL 0.5 mg/dL (0.2-1.0)
[2018-09-20 18:38] LABS: BASOPHILS # (AUTO) 0.02 x10^3/uL (0-0.1); BASOPHILS % (AUTO) 0 % (0-1); EOSINOPHILS % (AUTO) 0 % (1-7); LYMPHOCYTES # (AUTO) 0.52 x10^3/uL (1-3.4); LYMPHOCYTES % (AUTO) 3 % (22-44); MD SCAN; MONOCYTES # (AUTO) 0.38 x10^3/uL (0.2-0.8); MONOCYTES % (AUTO) 2 % (2-9); NEUTROPHILS # (AUTO) 16.02 x10^3/uL (1.8-6.8); NEUTROPHILS % (AUTO) 95 % (42-75)
[2018-09-20 18:55] VITALS: BP 126/84
[2018-09-20] MEDS ORDERED: ONDANSETRON 2MG/ML, 2ML ONE (19:21)
[2018-09-20] MEDS ORDERED: HYDROmorphone 1 MG/ML, 1ML ONE ×2 (19:22→21:10)
[2018-09-20] MEDS: HYDROmorphone 2 MG/ML, 1ML IVPush PRN ×2 (19:30→21:13)
[2018-09-20] MEDS ORDERED: ONDANSETRON 2MG/ML, 2ML IVPush ONE (19:30)
--- NOTE | 2018-09-20 19:37 | NUR ---
PT MEDICATED FOR PAIN/NAUSEA. PT STATES PAIN IS 10/10 IN ABD. PT TAKEN TO CT WITH TECH AT THIS TIME.
[2018-09-20] MEDS ORDERED: OMNIPAQUE 350 MG/ML, 100ML BOTTLE ONE (19:43)
[2018-09-20 19:49] LABS: MICROSCOPIC NOT IND
[2018-09-20 20:04] LABS: CULTURE INDICATED? NO
== END 2018-09-20 21:28 | disposition home or self-care (01) ==
LOC: ED 19:10
DX: G89.29 Other chronic pain (principal); R10.84 Generalized abdominal pain; R11.2 Nausea with vomiting, unspecified; I10 Essential (primary) hypertension
CPT/HCPCS: 36415; 74022; 74177; 80053; 81003; 83690; 85025; 96374; 96375; 96376; 99284; J1170; J2405; Q9967

== ENCOUNTER 2018-10-04 04:12 | Emergency (ER) | payer MEDICAID ==
[~2018-10-04] VITALS: Ht 170.2 cm; Wt 102.7 kg
[2018-10-04] MEDS ORDERED: CARVEDILOL 12.5 MG TABLET PO ONE (05:00)
[2018-10-04] MEDS ORDERED: HYDROmorphone 1 MG/ML, 1ML IV ONE (05:00)
[2018-10-04] MEDS ORDERED: SODIUM CHLORIDE FLUSH 10ML SYR IVF ONE (05:00)
[2018-10-04] MEDS ORDERED: ONDANSETRON 2MG/ML, 2ML IVPush ONE (05:00)
[2018-10-04] MEDS ORDERED: HYDROmorphone 1 MG/ML, 1ML ONE (05:07)
[2018-10-04] MEDS ORDERED: ONDANSETRON 2MG/ML, 2ML ONE (05:07)
--- NOTE | 2018-10-04 05:17 | NUR ---
PT REPORTS HE HAS BEEN STAYING WITH HIS IN THE HOSPITAL AND HAS NOT HAD HIS PAIN MEDS OR BLOOD PRESSURE MEDICATION SINCE SUNDAY. PT REPORTS PALPITATIONS. NATIONAL SALES CONSULTANT ON. NSR NOTED. VS STABLE. WILL CONTINUE TO MONITOR.
--- NOTE | 2018-10-04 05:24 | NUR ---
BP MEDS HELD PER DR NEGRETE
[2018-10-04 05:42] LABS: BASOPHILS # (AUTO) 0.02 x10^3/uL (0-0.1); BASOPHILS % (AUTO) 0 % (0-1); EOSINOPHILS # (AUTO) 0.08 x10^3/uL (0-0.4); EOSINOPHILS % (AUTO) 1 % (1-7); LYMPHOCYTES % (AUTO) 13 % (22-44); MD NO; MEAN CORPUSCULAR HEMOGLOBIN 30.4 pg (27.5-34.5); MEAN CORPUSCULAR HGB CONC 33.4 g/dL (33.2-36.2); MEAN PLATELET VOLUME 8.4 fL (7.4-10.4); MONOCYTES # (AUTO) 0.63 x10^3/uL (0.2-0.8); MONOCYTES % (AUTO) 8 % (2-9); NEUTROPHILS # (AUTO) 5.75 x10^3/uL (1.8-6.8); NEUTROPHILS % (AUTO) 77 % (42-75); PLATELET COUNT 144 x10^3/uL (130-400); RED BLOOD COUNT 4.11 x10^6/uL (4.38-5.82); RED CELL DISTRIBUTION WIDTH 15.1 % (9.4-14.8)
--- NOTE | 2018-10-04 05:48 | NUR ---
PT RESTING IN ROOM. NO ACUTE DISTRESS NOTED. CALL LIGHT IN PLACE. WILL CONTINUE TO MONITOR.
[2018-10-04 05:49] LABS: ALANINE AMINOTRANSFERASE 62 U/L (12-78); ALBUMIN 2.9 g/dL (3.4-5.0); ANION GAP 9 mmol/L (5-15); CALCIUM 8.2 mg/dL (8.5-10.1); CHLORIDE 110 mmol/L (98-107)
[2018-10-04 05:54] LABS: ALKALINE PHOSPHATASE 129 U/L (45-117); BILIRUBIN,TOTAL 0.4 mg/dL (0.2-1.0); TOTAL PROTEIN 7.5 g/dL (6.4-8.2); TROPONIN I < 0.015 ng/mL (0.000-0.045)
[2018-10-04 06:04] VITALS: BP 149/92
== END 2018-10-04 06:25 | disposition home or self-care (01) ==
LOC: ED 05:54
DX: R07.89 Other chest pain (principal); I11.0 Hypertensive heart disease with heart failure; Z91.14 Patient's other noncompliance with medication regimen; I25.2 Old myocardial infarction; E78.5 Hyperlipidemia, unspecified; E11.9 Type 2 diabetes mellitus without complications; I50.9 Heart failure, unspecified; Z86.73 Personal history of transient ischemic attack (TIA), and cerebral infarction without residual deficits; Z86.718 Personal history of other venous thrombosis and embolism
CPT/HCPCS: 36415; 71045; 80053; 83880; 84484; 85025; 93005; 96374; 96375; 99284; J1170; J2405

== ENCOUNTER 2018-10-24 14:57 | Emergency (ER) | payer MEDICAID ==
[~2018-10-24] VITALS: Ht 170.2 cm; Wt 104.5 kg
--- NOTE | 2018-10-24 16:04 | NUR ---
PT REFUSING BLOOD DRAW
[2018-10-24 16:27] VITALS: BP 16/80
--- NOTE | 2018-10-24 16:28 | NUR ---
Pt presents for CP and HTN x 2 days. Pt states BP was 230/135 at home and CP to L chest, pressure. Pt also c/o VALDES and nausea. Has been taking extra of his BP meds to bring BP down. NSR on ECG at this time.
--- NOTE | 2018-10-24 17:20 | NUR ---
Pt refused blood draw stating that if his BP was down, he would like to go home and come back if things get worse. Pt informed that MD would like to give scrip for new BP med. Pt left prior to receiving paperwork. No AMA form signed.
== END 2018-10-24 17:24 | disposition left against medical advice (07) ==
LOC: ED 17:18
DX: G44.211 Episodic tension-type headache, intractable (principal); I11.0 Hypertensive heart disease with heart failure; I50.9 Heart failure, unspecified; I25.2 Old myocardial infarction; R07.89 Other chest pain; F17.200 Nicotine dependence, unspecified, uncomplicated; E78.5 Hyperlipidemia, unspecified; Z86.73 Personal history of transient ischemic attack (TIA), and cerebral infarction without residual deficits; Z86.19 Personal history of other infectious and parasitic diseases; Z90.49 Acquired absence of other specified parts of digestive tract; Z86.718 Personal history of other venous thrombosis and embolism
CPT/HCPCS: 71046; 93005; 99283

== ENCOUNTER 2018-11-15 06:17 | Emergency (ER) | payer MEDICAID ==
[~2018-11-15] VITALS: Ht 170.2 cm; Wt 105.5 kg
--- NOTE | 2018-11-15 06:47 | NUR ---
REPORT FROM MICHAEL WALL, ASSUME CARE OF PT AT THIS TIME.
[2018-11-15] MEDS ORDERED: LORazepam 1MG TABLET ONE ×2 (06:54→08:19)
--- NOTE | 2018-11-15 06:56 | NUR ---
PT MEDICATED PER ERP ORDER. VSS/PT UPDATED ON POC. LAB IN TO DRAW, AWAITING CT. CALL LIGHT WITHIN REACH.
[2018-11-15] MEDS ORDERED: LORazepam 1MG TABLET PO ONE ×2 (07:00→08:30)
[2018-11-15 07:15] LABS: BASOPHILS % (AUTO) 0 % (0-1); EOSINOPHILS # (AUTO) 0.04 x10^3/uL (0-0.4); EOSINOPHILS % (AUTO) 1 % (1-7); LYMPHOCYTES # (AUTO) 1.33 x10^3/uL (1-3.4); LYMPHOCYTES % (AUTO) 18 % (22-44); MD NO; MEAN CORPUSCULAR HEMOGLOBIN 30.8 pg (27.5-34.5); MEAN CORPUSCULAR HGB CONC 33.4 g/dL (33.2-36.2); MEAN CORPUSCULAR VOLUME 92.2 fL (81-97); MEAN PLATELET VOLUME 8.2 fL (7.4-10.4); MONOCYTES # (AUTO) 0.22 x10^3/uL (0.2-0.8); MONOCYTES % (AUTO) 3 % (2-9); NEUTROPHILS # (AUTO) 5.86 x10^3/uL (1.8-6.8); NEUTROPHILS % (AUTO) 79 % (42-75); PLATELET COUNT 166 x10^3/uL (130-400); RED BLOOD COUNT 4.96 x10^6/uL (4.38-5.82); RED CELL DISTRIBUTION WIDTH 15.9 % (9.4-14.8)
[2018-11-15 07:20] LABS: ALBUMIN 3.4 g/dL (3.4-5.0); ANION GAP 10 mmol/L (5-15); CALCIUM 8.7 mg/dL (8.5-10.1); CHLORIDE 113 mmol/L (98-107); CREATININE 0.84 mg/dL (0.7-1.3)
--- NOTE | 2018-11-15 07:34 | NUR ---
PT STATES HE'S FEELING "LOOPY" BUT VALDES UNCHANGED. ADD ON ORDER MRI.
--- NOTE | 2018-11-15 07:53 | NUR ---
Went in to get VA's from pt, pt stated "I'm not doing too good at walking, I don't think I can."
[2018-11-15 08:13] VITALS: BP 148/98
--- NOTE | 2018-11-15 08:26 | NUR ---
PT STATES UNABLE TO GO TO MRI, NEEDS MORE MEDS D/T CLAUSTROPHOBIA. ERP NOTIFIED, PT GIVEN MORE ATIVAN PER ERP ORDER.
--- NOTE | 2018-11-15 09:28 | NUR ---
PT BACK FROM MRI.
--- NOTE | 2018-11-15 10:26 | NUR ---
PT NOT IN ROOM AT TIME OF DISCHARGE. ERP HAD GIVEN VERBAL INSTRUCTS TO PT.
== END 2018-11-15 10:29 | disposition home or self-care (01) ==
LOC: ED 09:25
DX: R20.2 Paresthesia of skin (principal); I25.2 Old myocardial infarction; I11.0 Hypertensive heart disease with heart failure; E78.5 Hyperlipidemia, unspecified; E11.21 Type 2 diabetes mellitus with diabetic nephropathy; G89.29 Other chronic pain; G43.909 Migraine, unspecified, not intractable, without status migrainosus; I50.9 Heart failure, unspecified
CPT/HCPCS: 36415; 70450; 70551; 80048; 82040; 85025; 99284

== ENCOUNTER 2019-01-06 23:03 | Emergency (ER) | payer MEDICAID ==
[~2019-01-06] VITALS: Ht 170.2 cm; Wt 104.7 kg
[2019-01-06 23:05] VITALS: BP 174/107
[2019-01-06] MEDS ORDERED: HYDROmorphone 1 MG/ML, 1ML INJ IM STA (23:22)
[2019-01-06] MEDS ORDERED: HYDROmorphone 2 MG/ML, 1ML ONE (23:39)
--- NOTE | 2019-01-06 23:46 | NUR ---
PT GIVEN IM DILAUDID AND THEN TELLS RN THAT HIS SON WAS IN AN ACCIDENT IN [place] AND HAD TO LEAVE. PT WALKED OUT AMA WITHOUT HAVING XRAY DONE. PT REFUSED TO SIGN AMA FORM.
== END 2019-01-06 23:49 | disposition left against medical advice (07) ==
LOC: ED 23:26
DX: G89.11 Acute pain due to trauma (principal); M54.5 Low back pain; I11.0 Hypertensive heart disease with heart failure; I50.9 Heart failure, unspecified; E11.9 Type 2 diabetes mellitus without complications; I25.2 Old myocardial infarction; G43.909 Migraine, unspecified, not intractable, without status migrainosus; Z86.718 Personal history of other venous thrombosis and embolism; Z72.9 Problem related to lifestyle, unspecified; Z86.14 Personal history of Methicillin resistant Staphylococcus aureus infection; Z86.19 Personal history of other infectious and parasitic diseases; W01.0XXA Fall on same level from slipping, tripping and stumbling without subsequent striking against object, initial encounter; Y93.89 Activity, other specified; Y92.009 Unspecified place in unspecified non-institutional (private) residence as the place of occurrence of the external cause; Y99.8 Other external cause status
CPT/HCPCS: 96372; 99283; J1170

== ENCOUNTER 2019-08-29 07:34 | Inpatient (IN) | payer MEDICAID ==
[~2019-08-29] VITALS: Ht 172.7 cm; Wt 111.8 kg
[2019-08-29] MEDS ORDERED: ONDANSETRON 2MG/ML, 2ML ONE (09:23)
[2019-08-29] MEDS ORDERED: MORPHINE SULFATE 4 MG/ML, 1ML ONE ×2 (09:24→10:08)
[2019-08-29] MEDS: MORPHINE SULFATE 4 MG/ML, 1ML IVPush PRN ×2 (09:26→10:10)
--- NOTE | 2019-08-29 09:30 | NUR ---
Break RN: Pt medicated as per emar for nausea & 8/10 ABD pain. Pt is aware of need for stool & urine samples. Call light within reach & will let staff know when able to produce samples. Pt on continuous SPO2 monitor & intermittent NIBP. CT ABD pending, pt aware of POC.
[2019-08-29 09:35] LABS: BASOPHILS # (AUTO) 0.02 x10^3/uL (0-0.1); BASOPHILS % (AUTO) 0 % (0-1); EOSINOPHILS # (AUTO) 0.03 x10^3/uL (0-0.4); EOSINOPHILS % (AUTO) 0 % (1-7); LYMPHOCYTES # (AUTO) 1.83 x10^3/uL (1-3.4); LYMPHOCYTES % (AUTO) 19 % (22-44); MD NO; MEAN CORPUSCULAR HEMOGLOBIN 31.7 pg (27.5-34.5); MEAN CORPUSCULAR HGB CONC 33.1 g/dL (33.2-36.2); MEAN CORPUSCULAR VOLUME 95.8 fL (81-97); MEAN PLATELET VOLUME 8.3 fL (7.4-10.4); MONOCYTES # (AUTO) 0.97 x10^3/uL (0.2-0.8); MONOCYTES % (AUTO) 10 % (2-9); NEUTROPHILS # (AUTO) 6.87 x10^3/uL (1.8-6.8); NEUTROPHILS % (AUTO) 71 % (42-75); PLATELET COUNT 183 x10^3/uL (130-400); RED BLOOD COUNT 5.17 x10^6/uL (4.38-5.82); RED CELL DISTRIBUTION WIDTH 14.9 % (9.4-14.8)
[2019-08-29 09:45] LABS: CALCIUM 8.5 mg/dL (8.5-10.1); CHLORIDE 110 mmol/L (98-107)
[2019-08-29 09:48] LABS: BILIRUBIN,TOTAL 0.7 mg/dL (0.2-1.0)
[2019-08-29] MEDS ORDERED: SODIUM CHLORIDE FLUSH 10ML SYR IVF ONE (10:00)
[2019-08-29] MEDS ORDERED: ONDANSETRON 2MG/ML, 2ML IVPush ONE (10:00)
[2019-08-29] MEDS ORDERED: SODIUM CHLORIDE 0.9% 1,000ML IVBOLUS ONE (10:00)
--- NOTE | 2019-08-29 10:06 | NUR ---
CT WAITING ON LABS PRIOR TO EXAM
[2019-08-29 10:13] LABS: ALANINE AMINOTRANSFERASE 81 U/L (12-78); ALBUMIN 3.7 g/dL (3.4-5.0); ANION GAP 12 mmol/L (5-15); CREATININE 1.03 mg/dL (0.7-1.3)
[2019-08-29 10:16] LABS: ALKALINE PHOSPHATASE 125 U/L (45-117); TOTAL PROTEIN 8.8 g/dL (6.4-8.2)
[2019-08-29] MEDS ORDERED: HYDROmorphone 1 MG/ML, 1ML INJ ONE ×3 (11:04→14:29)
--- NOTE | 2019-08-29 11:05 | NUR ---
pt requesting additional pain medication. pa notified and additional medication ordred. pt resting in [facility], awaiting ct scan. on monitor, call light within reach.
[2019-08-29] MEDS ORDERED: HYDROmorphone 1 MG/ML, 1ML INJ IV ONE (11:30)
[2019-08-29] MEDS ORDERED: HYDROmorphone 2 MG/ML, 1ML IVPush PRN (12:00)
--- NOTE | 2019-08-29 12:11 | NUR ---
late entry: pts iv infiltrated on r arm, iv established after multiple attempts with us. pt ready for ct. ct notified.
[2019-08-29] MEDS ORDERED: OMNIPAQUE 350 MG/ML, 100ML BOTTLE ONE (12:40)
--- NOTE | 2019-08-29 12:40 | NUR ---
PT RETURNED FROM CT
[2019-08-29 12:59] LABS: MICROSCOPIC NOT IND
[2019-08-29 13:07] LABS: CULTURE INDICATED? NO
[2019-08-29] MEDS: POTASSIUM CHLORIDE 10 MEQ in SODIUM CHLORIDE 0.9% 1,000 ML IV SCH (13:23)
--- NOTE | 2019-08-29 13:30 | NUR ---
PT TO BE ADMITTED, AWAITING BED ASSIGNMENT. PT WANTING TO SPEAK WITH MD. PT RESTING IN [facility], CALL LIGHT WITHIN REACH.
--- NOTE | 2019-08-29 13:34 | NUR ---
pt to xray
[2019-08-29] MEDS: NICOTINE 7 MG/24 HR PATCH.TD24 TD SCH (14:00)
[2019-08-29] MEDS ORDERED: PROMETHAZINE 25 MG/ML, 1ML IM PRN (14:00)
[2019-08-29] MEDS ORDERED: ONDANSETRON 2MG/ML, 2ML IVPush PRN (14:00)
[2019-08-29] MEDS ORDERED: hydrALAzine 20 MG/ML, 1ML IVPush PRN (14:00)
[2019-08-29] MEDS ORDERED: LORazepam 2 MG/ML, 1ML IVPush ONE (14:00)
[2019-08-29] MEDS ORDERED: LORazepam 2 MG/ML, 1ML ONE (14:13)
[2019-08-29] MEDS: HYDROmorphone 1 MG/ML, 1ML INJ IVPush PRN ×5 (14:31→21:22)
[2019-08-29] MEDS ORDERED: FURO-93 PO (15:27)
[2019-08-29] MEDS ORDERED: POTA20PA31 PO (15:27)
[2019-08-29] MEDS ORDERED: HYDR2TAB29 PO (15:27)
[2019-08-29 16:51] VITALS: BP 189/106
[2019-08-29] MEDS: SODIUM CHLORIDE 0.9% 1,000 ML IV SCH (17:20)
[2019-08-29 18:05] VITALS: BP 156/89
[2019-08-30] VITALS: BP 152/91
[2019-08-30] MEDS: HYDROmorphone 1 MG/ML, 1ML INJ IVPush PRN ×6 (00:23→17:02)
[2019-08-30] MEDS: SODIUM CHLORIDE 0.9% 1,000 ML IV SCH (02:22)
[2019-08-30] MEDS: POTASSIUM CHLORIDE 10 MEQ in SODIUM CHLORIDE 0.9% 1,000 ML IV SCH (05:18)
[2019-08-30 06:14] LABS: ALANINE AMINOTRANSFERASE 64 U/L (12-78); ALBUMIN 2.9 g/dL (3.4-5.0); ANION GAP 8 mmol/L (5-15); CALCIUM 7.5 mg/dL (8.5-10.1); CHLORIDE 115 mmol/L (98-107); CREATININE 0.87 mg/dL (0.7-1.3)
[2019-08-30 06:17] LABS: ALKALINE PHOSPHATASE 95 U/L (45-117); BASOPHILS # (AUTO) 0.03 x10^3/uL (0-0.1); BASOPHILS % (AUTO) 0 % (0-1); BILIRUBIN,TOTAL 0.7 mg/dL (0.2-1.0); EOSINOPHILS # (AUTO) 0.16 x10^3/uL (0-0.4); EOSINOPHILS % (AUTO) 2 % (1-7); LYMPHOCYTES # (AUTO) 2.19 x10^3/uL (1-3.4); LYMPHOCYTES % (AUTO) 33 % (22-44); MD NO; MEAN CORPUSCULAR HEMOGLOBIN 31.9 pg (27.5-34.5); MEAN CORPUSCULAR HGB CONC 33.6 g/dL (33.2-36.2); MEAN PLATELET VOLUME 8.1 fL (7.4-10.4); MONOCYTES % (AUTO) 11 % (2-9); NEUTROPHILS # (AUTO) 3.58 x10^3/uL (1.8-6.8); NEUTROPHILS % (AUTO) 54 % (42-75); PLATELET COUNT 138 x10^3/uL (130-400); RED BLOOD COUNT 4.44 x10^6/uL (4.38-5.82); RED CELL DISTRIBUTION WIDTH 15.2 % (9.4-14.8); TOTAL PROTEIN 7.2 g/dL (6.4-8.2)
[2019-08-30 07:11] VITALS: BP 163/102
[2019-08-30] MEDS ORDERED: LIDOCAINE 2% VISCOUS 15 ML UDC MM ONE (09:00)
[2019-08-30] MEDS: LORazepam 2 MG/ML, 1ML IVPush PRN ×3 (09:05→18:31)
[2019-08-30] MEDS ORDERED: FENTANYL 12 MCG PATCH TD SCH (12:00)
[2019-08-30] MEDS: D5%-0.45NACL+KCL 20MEQ 1,000 ML IV SCH ×2 (12:14→20:16)
[2019-08-30] MEDS: NICOTINE 7 MG/24 HR PATCH.TD24 TD SCH (12:16)
[2019-08-30 12:26] VITALS: BP 169/91
[2019-08-30] MEDS ORDERED: ENALAPRILAT 1.25 MG/ML, 2ML IV PRN (14:30)
[2019-08-30] MEDS ORDERED: POLYETHYLENE GLYCOL 17 GM PACKET PO PRN (20:00)
[2019-08-30 20:04] VITALS: BP_SYST 172; BP_SYST 176; BP_DIAS 115; BP_DIAS 128
[2019-08-30] MEDS ORDERED: HYDROmorphone 2MG TABLET ONE (20:13)
[2019-08-30] MEDS: HYDROmorphone 2MG TABLET PO SCH (20:16)
[2019-08-31 02:01] VITALS: BP 154/103
[2019-08-31] MEDS: HYDROmorphone 2MG TABLET PO SCH ×2 (02:01→07:58)
[2019-08-31] MEDS ORDERED: CARVEDILOL 12.5 MG TABLET PO SCH (06:00)
[2019-08-31 06:07] VITALS: BP 157/103
[2019-08-31] MEDS: D5%-0.45NACL+KCL 20MEQ 1,000 ML IV SCH (06:43)
[2019-08-31 06:48] VITALS: BP 165/108
[2019-08-31] MEDS ORDERED: POTASSIUM CHLORIDE 20 MEQ TAB.ER.PRT PO SCH (08:00)
[2019-08-31] MEDS ORDERED: FUROSEMIDE 20 MG TABLET PO SCH (08:00)
[2019-08-31] MEDS ORDERED: POLY17PO5 PO (08:07)
[2019-08-31] MEDS ORDERED: DOCU240C53 PO (08:07)
[2019-08-31 09:39] VITALS: BP 127/84
[2019-09-02] MEDS ORDERED: FENTANYL REMOVE PATCH NOTE XX SCH (12:00)
== END 2019-08-31 09:45 | disposition home or self-care (01) | DRG 247 ==
LOC: ED 08:01 → EDIP 13:20 → 4NE 16:17
PROVIDERS: ADMIT Internal Medicine; ATTEND Internal Medicine
DX: K56.601 Complete intestinal obstruction, unspecified as to cause (principal); E11.51 Type 2 diabetes mellitus with diabetic peripheral angiopathy without gangrene; I11.0 Hypertensive heart disease with heart failure; E66.01 Morbid (severe) obesity due to excess calories; F11.20 Opioid dependence, uncomplicated; I50.32 Chronic diastolic (congestive) heart failure; B18.2 Chronic viral hepatitis C; Z68.37 Body mass index [BMI] 37.0-37.9, adult; E78.5 Hyperlipidemia, unspecified; E86.0 Dehydration; G89.29 Other chronic pain; I25.2 Old myocardial infarction; I69.30 Unspecified sequelae of cerebral infarction; K56.7 Ileus, unspecified; Z88.6 Allergy status to analgesic agent; Z88.8 Allergy status to other drugs, medicaments and biological substances; Z72.0 Tobacco use; Z80.9 Family history of malignant neoplasm, unspecified; Z83.3 Family history of diabetes mellitus; Z86.14 Personal history of Methicillin resistant Staphylococcus aureus infection; Z86.711 Personal history of pulmonary embolism; Z86.718 Personal history of other venous thrombosis and embolism; Z95.828 Presence of other vascular implants and grafts
CPT/HCPCS: 36415; 74018; 74177; 74248; 80053; 81003; 83690; 85025; 96374; 96375; G0378; J1170; J2405; J3480; Q9967; J0360; J2060; J2270; J7030

== ENCOUNTER 2019-10-28 15:59 | Emergency (ER) | payer MEDICAID ==
[~2019-10-28] VITALS: Ht 170.2 cm; Wt 111.9 kg
[~2019-10-28 15:59] MED LIST changes: +DOCU240C53 PO; +FURO-93 PO; +HYDR2TAB29 PO; +POTA20PA31 PO
[2019-10-28 16:10] VITALS: BP 153/95
--- NOTE | 2019-10-28 19:21 | NUR ---
GRAIN INSPECTOR: CALLED FOR PT. PT NOT IN LOBBY.
--- NOTE | 2019-10-28 19:54 | NUR ---
TESTING ANALYST: CALLED FOR PT. PT NOT IN LOBBY.
--- NOTE | 2019-10-28 20:05 | NUR ---
TACK WELDER: CALLED FOR PT. PT NOT IN LOBBY.
== END 2019-10-28 20:14 | disposition left against medical advice (07) ==
LOC: ED 20:05
DX: R53.83 Other fatigue (principal); I10 Essential (primary) hypertension; Z53.21 Procedure and treatment not carried out due to patient leaving prior to being seen by health care provider
CPT/HCPCS: 93005

== ENCOUNTER 2020-10-22 06:40 | Observation (INO) | payer MEDICAID ==
[~2020-10-22] VITALS: Ht 172.7 cm; Wt 116.5 kg
[~2020-10-22 06:40] MED LIST changes: -LISI40TA PO; +LISI40TA9 PO; -PANT40TA5 PO; +PANT40TA6 PO; -WARF5TAB PO; +WARF5TAB2 PO
--- NOTE | 2020-10-22 06:43 | NUR ---
INITIAL PT CONTACT. PT PRESENTS TO THE ED VIA EMS C/O CRUSHING AND STABBING CHEST PAIN 03/22. PAINRADIATES TO THE LEFT ARM, JAW AND NECK. PT ALSO COMPLAINS OF NAUSEA AND SOB ASSOCIATED WITH THE CHEST PAIN. HX OF CT AND STENT PLACEMENT IN 1999, "FEELS THE SAME THAT TIME". PT SITTING UPRIGHT ON JUANY NADRic. PT PLACED ON CONTINUOUS PULSE OX AND CARDIAC MONITORING. CALL LIGHT AND BELONGINGS WITHIN REACH. ERP AT BEDSIDE.
--- NOTE | 2020-10-22 06:53 | NUR ---
BEDSIDE REPORT TO APRIL WALL
[2020-10-22] MEDS ORDERED: MORPHINE SULFATE 4 MG/ML, 1ML IVPush PRN (07:00)
[2020-10-22] MEDS ORDERED: SODIUM CHLORIDE FLUSH 10ML SYR IVF ONE (07:00)
[2020-10-22] MEDS ORDERED: MORPHINE SULFATE 4 MG/ML, 1ML ONE (07:12)
[2020-10-22 07:22] LABS: BASOPHILS % (AUTO) 1 % (0-1); EOSINOPHILS % (AUTO) 0 % (1-7); LYMPHOCYTES % (AUTO) 13 % (22-44); MEAN CORPUSCULAR HEMOGLOBIN 34.4 pg (27.5-34.5); MEAN CORPUSCULAR HGB CONC 34.1 g/dL (33.2-36.2); MEAN PLATELET VOLUME 9.1 fL (7.4-10.4); MONOCYTES % (AUTO) 8 % (2-9); NEUTROPHILS % (AUTO) 78 % (42-75); PLATELET COUNT 98 x10^3/uL (130-400); RED BLOOD COUNT 3.95 x10^6/uL (4.38-5.82); RED CELL DISTRIBUTION WIDTH 13.9 % (9.4-14.8)
[2020-10-22 07:24] LABS: MD NO
[2020-10-22 07:29] LABS: ANION GAP 11 mmol/L (5-15); CALCIUM 8.6 mg/dL (8.5-10.1); CHLORIDE 110 mmol/L (98-107); CREATININE 0.94 mg/dL (0.7-1.3)
[2020-10-22 07:33] LABS: TROPONIN I < 0.015 ng/mL (0.000-0.045)
--- NOTE | 2020-10-22 07:50 | NUR ---
PT COMPLAINS OF INCREASING CP, SECOND EKG ORDERED.
--- NOTE | 2020-10-22 08:00 | NUR ---
MEDICATED PT PER EMAR. PROVIDER SPOKE WITH PATIENT ABOUT PAIN MEDICATIONS AND POC. THE PATIENT WALKED TO THE RESTROOM WITH A STEADY GAIT. REFUSED THE URINAL AND BEDSIDE COMODE.
--- NOTE | 2020-10-22 08:16 | NUR ---
THE IV IN THE RIGHT FOREARM INFILTRATED. I REMOVED THE IV AND PLACED A DRESSING.
--- NOTE | 2020-10-22 09:05 | NUR ---
Task rn: left arm normal length 18ga placed to left forearm via ultrasound
--- NOTE | 2020-10-22 09:21 | NUR ---
report to amrit WALL
[2020-10-22] MEDS ORDERED: hydrALAzine 20 MG/ML, 1ML IVPush PRN (09:30)
[2020-10-22] MEDS ORDERED: TRAZODONE 50MG TABLET PO PRN (09:30)
[2020-10-22] MEDS ORDERED: ACETAMINOPHEN 325 MG TABLET PO PRN (09:30)
[2020-10-22] MEDS ORDERED: ONDANSETRON ODT 4 MG PO PRN (09:30)
[2020-10-22] MEDS ORDERED: LISINOPRIL 5 MG TABLET PO SCH (09:30)
[2020-10-22] MEDS ORDERED: ONDANSETRON 2MG/ML, 2ML IVPush PRN (09:30)
[2020-10-22] MEDS ORDERED: morphine SULFATE 10 MG/ML, 1ML IVPush PRN (09:30)
[2020-10-22] MEDS: SPIRONOLACTONE 25 MG TABLET PO SCH ×2 (09:30→19:43)
[2020-10-22 09:48] VITALS: BP 156/98
[2020-10-22] MEDS: HYDROmorphone 2MG TABLET PO PRN ×3 (10:11→22:55)
[2020-10-22] MEDS ORDERED: LISINOPRIL 5 MG TABLET ONE (12:43)
[2020-10-22] MEDS ORDERED: SPIRONOLACTONE 25 MG TABLET ONE (12:43)
[2020-10-22 12:45] VITALS: BP 159/97
[2020-10-22 15:26] LABS: TROPONIN I < 0.015 ng/mL (0.000-0.045)
[2020-10-22] MEDS: CARVEDILOL 6.25 MG TABLET PO SCH (16:23)
[2020-10-22 19:41] VITALS: BP 139/89
[2020-10-22] MEDS ORDERED: ZOLPIDEM 5MG TABLET PO SCH (21:00)
[2020-10-23 00:29] VITALS: BP 135/83
[2020-10-23 03:44] VITALS: BP 144/83
[2020-10-23 04:54] VITALS: BP 148/97
[2020-10-23] MEDS: HYDROmorphone 2MG TABLET PO PRN (05:09)
[2020-10-23 05:49] VITALS: BP 142/86
[2020-10-23] MEDS: CARVEDILOL 6.25 MG TABLET PO SCH (05:50)
== END 2020-10-23 06:48 | disposition left against medical advice (07) ==
LOC: ED 08:59 → SUATTDRO 09:11 → INTOOBSV 09:17 → EDIP 09:17 → 5SO 09:47
PROVIDERS: ADMIT Hospitalist; ATTEND Hospitalist
DX: R55 Syncope and collapse (principal); I11.0 Hypertensive heart disease with heart failure; I50.9 Heart failure, unspecified; I42.1 Obstructive hypertrophic cardiomyopathy; G89.29 Other chronic pain; M25.512 Pain in left shoulder; I27.20 Pulmonary hypertension, unspecified; D69.6 Thrombocytopenia, unspecified; D53.9 Nutritional anemia, unspecified; E88.09 Other disorders of plasma-protein metabolism, not elsewhere classified; I73.9 Peripheral vascular disease, unspecified; I25.2 Old myocardial infarction; F17.210 Nicotine dependence, cigarettes, uncomplicated; Z86.711 Personal history of pulmonary embolism; Z79.899 Other long term (current) drug therapy; Z87.11 Personal history of peptic ulcer disease; Z88.6 Allergy status to analgesic agent; Z95.828 Presence of other vascular implants and grafts
CPT/HCPCS: 36415; 71045; 80048; 82040; 84484; 85025; 93005; 93306; 96374; 99285; G0378; J2270; Q0162

== ENCOUNTER 2021-02-03 10:49 | Emergency (ER) | payer MEDICAID ==
[~2021-02-03] VITALS: Ht 170.2 cm; Wt 108.0 kg
--- NOTE | 2021-02-03 11:13 | NUR ---
BIB [facility] FROM HOME. PT C/O N/V/D X1 WEEK, BLACK STOOL X3 DAYS. HX GI BLEED. NURSE OBGYN [facility]: ZOFRAN 4MG ODT, 2 UNSUCCESSFUL PIV ATTEMPTS. PT AMBULATED FROM [facility] TO [facility]. PT BECAME DIZZY AND WOBBLY, PT [facility]GA ASSIST TO [facility]. PT CONNECTED TO ALL MONITORING. ERMD AT BEDSIDE FOR ASSESSMENT.
[2021-02-03] MEDS ORDERED: SODIUM CHLORIDE FLUSH 10ML SYR IVF ONE (11:30)
[2021-02-03] MEDS ORDERED: PANTOPRAZOLE 40 MG IV IVPush ONE (11:30)
[2021-02-03 11:51] LABS: BASOPHILS % (AUTO) 1 % (0-1); EOSINOPHILS % (AUTO) 1 % (1-7); LYMPHOCYTES % (AUTO) 16 % (22-44); MEAN CORPUSCULAR HEMOGLOBIN 36.1 pg (27.5-34.5); MEAN CORPUSCULAR HGB CONC 34.1 g/dL (33.2-36.2); MEAN PLATELET VOLUME 9.3 fL (7.4-10.4); MONOCYTES % (AUTO) 9 % (2-9); NEUTROPHILS % (AUTO) 74 % (42-75); PLATELET COUNT 108 x10^3/uL (130-400); RED BLOOD COUNT 4.13 x10^6/uL (4.38-5.82); RED CELL DISTRIBUTION WIDTH 14.7 % (9.4-14.8)
[2021-02-03] MEDS ORDERED: HYDROmorphone 1 MG/ML, 1ML INJ ONE ×3 (11:54→13:38)
[2021-02-03] MEDS ORDERED: PANTOPRAZOLE 40 MG IV ONE (11:54)
[2021-02-03] MEDS: HYDROmorphone 1 MG/ML, 1ML INJ IVPush PRN ×2 (11:56→12:35)
[2021-02-03 12:03] LABS: ALANINE AMINOTRANSFERASE 68 U/L (12-78); ALBUMIN 3.2 g/dL (3.4-5.0); ANION GAP 4 mmol/L (5-15); CALCIUM 8.7 mg/dL (8.5-10.1); CHLORIDE 110 mmol/L (98-107); CREATININE 1.13 mg/dL (0.7-1.3)
[2021-02-03 12:05] LABS: ALKALINE PHOSPHATASE 103 U/L (45-117); BILIRUBIN,TOTAL 0.8 mg/dL (0.2-1.0); TOTAL PROTEIN 7.9 g/dL (6.4-8.2)
--- NOTE | 2021-02-03 12:05 | NUR ---
PIV PLACE BY TASK RN VIA . LABS DRAWN AND COLLECTED BY TEACHER OF GIFTED STUDENTS. MEDS ADMIN PER OCT. PT STATES PAIN IS BETTER AFTER PAIN MEDS.
[2021-02-03] MEDS ORDERED: CARV-39 PO (12:10)
[2021-02-03] MEDS ORDERED: SPIR25TA5 PO (12:10)
[2021-02-03] MEDS ORDERED: HYDR4TAB48 PO (12:10)
[2021-02-03] MEDS ORDERED: FURO40TA6 PO (12:10)
[2021-02-03] MEDS ORDERED: CLON0.1T22 PO (12:10)
--- NOTE | 2021-02-03 12:36 | NUR ---
PT C/O 02/19 PAIN. SECOND DOSE PAIN RN TELEPHONE TRIAGE PER OCT.
--- NOTE | 2021-02-03 12:39 | NUR ---
ALL RESULTS ARE BACK AT THIS TIME. CHART UP FOR RECHECK.
[2021-02-03] MEDS ORDERED: HYDROmorphone 2 MG/ML, 1ML IVPush PRN (13:30)
[2021-02-03 13:45] VITALS: BP 123/77
== END 2021-02-03 14:12 | disposition home or self-care (01) ==
LOC: ED 14:05
DX: K26.7 Chronic duodenal ulcer without hemorrhage or perforation (principal); R11.2 Nausea with vomiting, unspecified; F17.200 Nicotine dependence, unspecified, uncomplicated; I11.0 Hypertensive heart disease with heart failure; I50.9 Heart failure, unspecified; E11.9 Type 2 diabetes mellitus without complications; G43.909 Migraine, unspecified, not intractable, without status migrainosus; Z86.718 Personal history of other venous thrombosis and embolism; Z90.89 Acquired absence of other organs; Z90.49 Acquired absence of other specified parts of digestive tract
CPT/HCPCS: 36415; 80053; 85025; 86850; 86900; 96374; 96375; 96376; 99284; C9113; J1170